=== PATIENT | female | born 1950 | race Caucasian/White ===

== ENCOUNTER 2020-03-07 09:00 | Outpatient (RCR) | payer MEDICARE, OTHER, SELFPAY | END 2020-03-13 10:40 | disposition home or self-care (01) | LOC: HO.PTCHIC 09:00 | PROVIDERS: PCP Family Medicine; Visit Provider Physician Assistant | DX: M16.12 Unilateral primary osteoarthritis, left hip (principal) | CPT/HCPCS: 97110; 97140; 97161 ==

== ENCOUNTER 2020-04-10 09:45 | Emergency (ER) | payer MEDICARE, OTHER, SELFPAY ==
[2020-04-10 09:52] VITALS: BP 127/72; PULSE 77; PULSE 78; RESP 18; TEMP 37.3; O2SAT 98; BMI 39.5
--- NOTE | 2020-04-10 09:53 | ED_ITS ---
HPI - Allergic Reaction General Chief complaint: Allergic Reaction Stated complaint: allergic rx to meds,facial swelling,epi pen 0830 Time Seen by Provider: 04/10/20 09:52 Source: patient and EMS Mode of arrival: EMS Limitations: no limitations History of Present Illness complaint: allergic reaction and facial swelling Onset (ago): hour(s) (6am today) Exposure: medication (OTC cold medications) Known history of allergy to: NSAIDs Symptoms: facial swelling Severity: similar to previous episodes (has angioedema, moderate severity) Treatment prior to arrival: epinephrine (one dose) and other (took 2 atarax) Previous Allergic Reaction History: prior ED visit(s) and angioedema Related Data Previous Rx's Medication Instructions Recorded prednisone 40 mg PO DAILY 5 Days #10 tab 04/10/20 Allergies Allergy/AdvReac Type Severity Reaction Status Date / Time codeine [CODEINE] Allergy Unknown NAUSEA & Unverified 01/18/20 16:05 VOMITING azithromycin Allergy Angioedema Verified 04/10/20 10:04 cephalexin [From Keflex] Allergy Rash Verified 04/10/20 10:04 ibuprofen Allergy Angioedema Verified 04/10/20 10:04 latex Allergy Rash Verified 04/10/20 10:04 lisinopril Allergy Angioedema Verified 04/10/20 10:04 nadolol [From Corgard] Allergy Itching Verified 04/10/20 10:04 clindamycin AdvReac Rash Verified 04/10/20 10:04 diltiazem [From Cardizem] AdvReac Headache Verified 04/10/20 10:04 Review of Systems Review of Systems: Constitutional : No Fever, No Chills ENT/Mouth : positive oral swelling, No Hoarseness, No Swallowing Difficulty Eyes: No Eye Pain, No Swelling, No Redness Cardiovascular : No Chest Pain, No SOB Respiratory : No Cough, No Sputum, No Wheezing, No Smoke Exposure, No Dyspnea Gastrointestinal : No Nausea, No Vomiting, No Diarrhea, No abdominal Pain Genitourinary : No Dysuria, No Urinary Frequency, No Hematuria Musculoskeletal : No joint pain, No Myalgias, No Joint Swelling Skin : No Skin Lesions, positive rash (old from prior reaction) Neuro : No Weakness, No Numbness, No Headache Psych : No Anxiety/Panic, No Depression Heme/Lymph: No Bruising, No Lymphadenopathy Endocrine : No Polyuria, No Polydipsia All other systems reviewed and are negative FOR[facility] Past Medical History Attestation statement: The following information was validated with the patient. Social History Social History (Updated 04/10/20 @ 09:55 by Barbara Yoder DO) Smoking Status: Never smoker Advance Directives: No Advance Directives Information Provided: No Physical Exam Vital Signs: Vital Signs: Last Vital Signs Temp 99.2 F 04/10/20 09:52 Pulse 78 04/10/20 09:52 Resp 18 04/10/20 09:52 BP 127/72 04/10/20 09:52 Pulse Ox 98 04/10/20 09:52 Body Mass Index 39.5 Appearance: Alert. Oriented X3. No acute distress. Eyes: Pupils equal, round and reactive to light. ENT: mild R sided lower jaw swelling, mild R tongue swelling Neck: Normal inspection. Neck supple. CVS: Normal heart rate and rhythm. Pulses normal. Respiratory: No respiratory distress. Breath sounds normal. Abdomen: Soft and nontender. Skin: Skin warm and dry. Normal skin color. Normal skin turgor. old pink faint rash on L forearm Extremities: No lower extremity edema. No calf ttp Neuro: Oriented X 3. No motor deficit. No sensory deficit. Course Course Course Narrative: patient improved, stable for DC MDM - Allergic Reaction MDM Narrative Medical decision making narrative: 69 yo female with recurrent angioedema mostly pointed at NSAIDs, she does respond to epi - overall she is improving from treatments at home, no airway issues, will give pepcid and prednisone and observe, has had URI will obtain COVID swab as well, dispo per results and improvement Lab Data Labs: Lab Results 04/10/20 Range/Units 10:09 COVID-19 ([facility]) Negative (Negative) COVID-19 Clin Com See Note Discharge Plan Discharge Clinical Impression: Angioedema Qualifiers: Encounter type: initial encounter Qualified Code(s): T78.3XXA - Angioneurotic edema, initial encounter Patient Disposition: Home, Self-Care Instructions: Angioedema (ED) Additional Instructions: return to ED for any worsening symptoms or concerns Prescriptions: New prednisone 20 mg tablet 40 mg PO DAILY 5 Days Qty: 10 RF: 0 Referrals: Jessy Johnson DO [Primary Care Provider] - 2 days (as needed)
[2020-04-10] MEDS: predniSONE 20 MG TABLET 60 MG PO (10:11)
[2020-04-10] MEDS: Famotidine 20 MG TABLET PO (10:11)
[2020-04-10 10:34] LABS: COVID-19 Test Negative (Negative); IDNOW Serial# 9DD0AD1C
== END 2020-04-10 11:04 | disposition home or self-care (01) ==
PROVIDERS: Emergency Provider Emergency Medicine; PCP Family Medicine
DX: T78.3XXA Angioneurotic edema, initial encounter (principal); T39.315A Adverse effect of propionic acid derivatives, initial encounter; Y92.019 Unspecified place in single-family (private) house as the place of occurrence of the external cause; Z20.828 Contact with and (suspected) exposure to other viral communicable diseases
CPT/HCPCS: 87635; 99283

== ENCOUNTER 2020-04-23 08:00 | Outpatient (RCR) | payer MEDICARE, OTHER, SELFPAY | END 2020-05-01 10:41 | disposition home or self-care (01) | LOC: HO.PTCHIC 08:00 | PROVIDERS: PCP Family Medicine; Visit Provider Orthopaedic Surgery | DX: M19.90 Unspecified osteoarthritis, unspecified site (principal); R52 Pain, unspecified | CPT/HCPCS: 97110; 97140; 97161 ==

== ENCOUNTER 2021-01-28 14:25 | Outpatient (REF) | payer MEDICARE, OTHER, SELFPAY ==
[2021-01-28 14:37] LABS: IDNOW Serial# 08D9AD1C; Strep A Nucleic Acid Negative (Negative)
== END 2021-01-28 14:26 | disposition home or self-care (01) ==
LOC: HO.LNP 14:25
PROVIDERS: Visit Provider Physician Assistant Medical
DX: J02.9 Acute pharyngitis, unspecified (principal)
CPT/HCPCS: 87651

== ENCOUNTER → 2021-06-13 11:09 | Outpatient (BNVA) | payer MEDICARE, OTHER, SELFPAY | PROVIDERS: PCP Family Medicine; Visit Provider Internal Medicine Cardiovascular Disease | DX: R00.2 Palpitations (principal); I10 Essential (primary) hypertension | CPT/HCPCS: 93005; 99202 ==

== ENCOUNTER → 2021-06-24 07:28 | Outpatient (REF) | payer MEDICARE, OTHER, SELFPAY ==
--- NOTE | 2021-06-24 07:32 | HM_ITS ---
conclusion: 1. Patient was monitor for total [id number] and 4 hours 2. Baseline was normal sinus rhythm with average heart of 78 beats per minute 3. Total of 277,698 PACs accounting for 20.37% of total beats account for very frequent PACs 4. Frequent bursts of supraventricular ectopy, longest 27 beats, most consistent with PAT or less likely SVT. 5. Patient reported no events 6. No significant bradycardia or pauses noted MTDD
== END ==
LOC: HO.CARD 07:28
PROVIDERS: Visit Provider Internal Medicine Cardiovascular Disease
DX: R00.2 Palpitations (principal)
CPT/HCPCS: 93246

== ENCOUNTER → 2021-06-30 08:31 | Outpatient (REF) | payer MEDICARE, OTHER, SELFPAY | LOC: HO.SL 08:31 | PROVIDERS: PCP Family Medicine; Visit Provider Internal Medicine Cardiovascular Disease | DX: G47.10 Hypersomnia, unspecified (principal); I49.1 Atrial premature depolarization; I10 Essential (primary) hypertension | CPT/HCPCS: 95806 ==

== ENCOUNTER → 2021-07-25 10:10 | Outpatient (BNVA) | payer MEDICARE, OTHER, SELFPAY | PROVIDERS: PCP Family Medicine; Visit Provider Internal Medicine Cardiovascular Disease | DX: I47.1 Supraventricular tachycardia (principal) | CPT/HCPCS: 99212 ==

== ENCOUNTER 2021-10-01 08:21 | Outpatient (REF) | payer MEDICARE, OTHER, SELFPAY ==
[2021-10-01 12:04] LABS: B Type Natriuretic Peptide 56 pg/mL (<100)
[2021-10-01 12:08] LABS: Anion Gap 14 (12-20); Blood Urea Nitrogen 13 mg/dL (9-16); Calcium 9.3 mg/dL (8.4-10.2); Carbon Dioxide 24 mmol/L (22-29); Chloride 107 mmol/L (96-108); Estimated Glomerular Filt Rate > 60; Glucose Random 109 mg/dL (60-115); Potassium 3.6 mmol/L (3.3-5.1); Sodium 141 mmol/L (135-145)
== END 2021-10-01 08:22 | disposition home or self-care (01) ==
LOC: HO.HMGCLDS 08:21
PROVIDERS: Visit Provider Internal Medicine Cardiovascular Disease
DX: I47.1 Supraventricular tachycardia (principal); R00.2 Palpitations; I49.1 Atrial premature depolarization
CPT/HCPCS: 36415; 80048; 83880

== ENCOUNTER → 2021-10-30 08:53 | Outpatient (BNVA) | payer MEDICARE, OTHER, SELFPAY | PROVIDERS: PCP Family Medicine; Visit Provider Internal Medicine Cardiovascular Disease | DX: I47.1 Supraventricular tachycardia (principal); R06.02 Shortness of breath; Z79.899 Other long term (current) drug therapy | CPT/HCPCS: 93005; 99212 ==

== ENCOUNTER → 2021-11-28 07:49 | Outpatient (REF) | payer MEDICARE, OTHER, SELFPAY ==
--- NOTE | ~2021-11-28 | NM_ITS ---
EXERCISE MYOCARDIAL PERFUSION STUDY INDICATION: Abnormal EKG, assess for coronary disease and ischemia TECHNIQUE: The patient was brought in for an exercise perfusion study on 11/28/2021. Patient performed exercise as per Kayden protocol and was injected 35 mCi of sestamibi once target heart rate was achieved. Images were obtained using the SPECT gamma camera interlaced with the gating device. Images were obtained in supine position. Resting perfusion study was performed on 12/02/2021. Patient was administered 35 mCi of sestamibi intravenously at rest. Images were then obtained in supine position. Total DLP 144mGy-cm. Images were processed with the software and compared side to side in short axis, horizontal long axis and vertical long axis views. FINDINGS: Raw images were reviewed. The stress perfusion study showed no significant perfusion abnormality. Both uncorrected as well as CT attenuation corrected images were reviewed. The gated study shows normal LV systolic function with calculated LVEF of 62%. LV cavity is normal in size. The gated study shows normal wall thickening and contraction of segments. Resting study shows no significant perfusion abnormality. Gating at rest reveals normal wall motion with ejection fraction at 71%. The findings are consistent with no definite reversible or fixed perfusion abnormality. NM/NM cardiolite stress test IMPRESSION: 1. Myocardial perfusion imaging study shows likely normal myocardial perfusion. No definitive evidence of any ischemia or infarction. 2. Gated LVEF is 62% during stress and 71% during rest. 3. Transient ischemic dilatation not present. EKG component of the test reported separately.
--- NOTE | 2021-11-28 07:56 | CA_ITS ---
Acquisition Time: 2021-11-28 08:06:51 Total Exercise Time: 00:05:01 Test Indications: ABN EKG Medications: SEE CHART Protocol: ZHANE Max HR: 153 BPM 100% of Pred: 152 BPM Max BP: 166/092 mmHG Max Work Load: 6.4 METS Exercise stress test with exercise 5 min 1 sec of Zhane protocol, with moderate shortness of breath, no chest discomfort, with very frequent PACs and short atrial runs, with normotensive response to exercise, with borderline ST abnormalities noted, no clear ischemic changes. In recovery the PVCs lessened and her breathing quickly improved. Nuclear images pending. Test reviewed with Dr Barroso Note- atrial fibrillation during exercise not entirely excluded. Referred By: Ed Mcclelland Overread By: ADELINA MURRIETA
== END ==
LOC: HO.CARD 07:49
PROVIDERS: Visit Provider Internal Medicine Cardiovascular Disease
DX: R07.9 Chest pain, unspecified (principal); R06.02 Shortness of breath; I10 Essential (primary) hypertension
CPT/HCPCS: 78452; 93017; A9500

== ENCOUNTER 2022-01-16 08:00 | Outpatient (REF) | payer MEDICARE, OTHER, SELFPAY ==
--- NOTE | ~2022-01-16 | MM_ITS ---
EXAMINATION: BONE DENSITOMETRY CLINICAL INDICATION: Screening. COMPARISON: None (current study represents initial baseline exam). TECHNIQUE: Using a [employer] DXA System (software version: 13.1) manufactured by [employer], dual-energy x-ray absorptiometry was performed of the lumbar spine and right hip. The images are of good technical quality. Summary results are attached. FINDINGS: AP SPINE L1-L4: BMD 1.034 g/cm2, Z-score -0.7, T-score -1.2, osteopenia. RIGHT FEMUR, NECK: BMD 0.888 g/cm2, Z-score -0.2, T-score -1.1, osteopenia. RIGHT FEMUR, TOTAL: BMD 0.985 g/cm2, Z-score 0.4, T-score -0.2, normal. IDENTIFIED RISK FACTORS: Menopause, Thiazide. HISTORY OF FRACTURE: None listed. MEDICATIONS: None listed. MM/XR DEXA axial skeleton IMPRESSION: 1. DIAGNOSIS: Osteopenia based on the lowest T-score value of -1.2 in the lumbar spine applying World Health Organization criteria. 2. 10-YEAR FRACTURE RISK PREDICTION, FRAX: Major osteoporotic fracture (clinical spine, forearm, hip or shoulder) 7.8%. Hip fracture 0.7%. 3. Treatment Recommendations: NOF guidelines recommend consideration for treatment in postmenopausal women and men age 50 and older presenting with the following: -A hip or vertebral (clinical or morphometric) fracture. -T-score less than or equal to -2.5 at the femoral neck or spine after appropriate evaluation to exclude secondary causes. -Low bone mass at the hip or spine and a 10-year fracture probability by FRAX of greater than or equal to 3% for hip fracture or greater than or equal to 20% for major osteoporotic fracture based on the [place] adapted WHO algorithm. 4. Other Recommendations: All treatment decisions require clinical judgment and consideration of individual patient factors, including patient preferences, comorbidities, previous drug use, risk factors not captured in the FRAX model (e.g. frailty, falls, vitamin D deficiency, increased bone turnover, interval significant decline in bone density) and possible under or overestimation of fracture risk by FRAX. Additional medical evaluation for secondary cause of low bone mineral density may be appropriate. FUTURE SCAN RECOMMENDATION: People with diagnosed cases of osteoporosis or at high risk for fracture should have regular bone mineral density tests. For patients eligible for Medicare, routine testing is allowed once every 2 years. The testing frequency can be increased to one year for patients who have rapidly progressing disease, those who are receiving or discontinuing medical therapy to restore bone mass, or have additional risk factors.
== END 2022-01-16 08:01 | disposition home or self-care (01) ==
LOC: HO.MAMMO 08:00
PROVIDERS: Visit Provider Family Medicine
DX: Z13.820 Encounter for screening for osteoporosis (principal); Z78.0 Asymptomatic menopausal state
CPT/HCPCS: 77080

== ENCOUNTER → 2022-06-04 09:06 | Outpatient (BNVA) | payer MEDICARE, OTHER, SELFPAY | PROVIDERS: PCP Family Medicine; Referring Provider Family Medicine; Visit Provider Internal Medicine Cardiovascular Disease | DX: I47.1 Supraventricular tachycardia (principal); I10 Essential (primary) hypertension | CPT/HCPCS: 93005; 99212 ==

== ENCOUNTER → 2022-06-10 10:39 | Outpatient (REF) | payer MEDICARE, OTHER, SELFPAY ==
--- NOTE | 2022-06-10 10:43 | HM_ITS ---
conclusion: 1. Patient was monitored for total period of 1 day and 22 hours 2. Baseline was normal sinus rhythm with average heart of 71 beats per minute 3. Total of 32,953 PACs accounting for 18.4% total beats account for very frequent PACs 4. Very frequent short runs of SVT ease, longest lasting 19 beats and the fastest at 152 beats per minute 5. No patient reported events MTDD
== END ==
LOC: HO.CARD 10:39
PROVIDERS: Visit Provider Internal Medicine Cardiovascular Disease
DX: I47.1 Supraventricular tachycardia (principal)
CPT/HCPCS: 93242

== ENCOUNTER → 2022-07-24 09:48 | Outpatient (REF) | payer MEDICARE, OTHER, SELFPAY ==
--- NOTE | 2022-07-24 09:54 | CA_ITS ---
Transthoracic Echocardiogram Patient (Last, First, Middle): Susan Mesa, Gender: Female Date of : 1950 Age: 71 Procedure Date: 07/24/2022 Procedure Type: Transthoracic Echocardiogram Location: OP Height: 160.02 cm Weight: 99.79 kg BSA: 2.01 m2 Heart Rate: bpm BP: 126 / 70 mmHg Asset Protection Specialist: TO Referring MD: Ed Mcclelland MD Benchroom Shop Optician: Ed Mcclelland MD Symptoms: R00.2 - Palpitations Study Quality: Fair/Contrast ECG Rhythm: Sinus Conclusions: - 1. Normal LV systolic function with pseudonormal filling pattern 2. Mild mitral regurgitation 3. Normal RV systolic pressure 4. No gross pericardial effusion Findings Procedure Information Contrast agent, definity, is being given per protocol without apparent complications. Left Ventricle Normal left ventricular size, thickness, and systolic function. The visually estimated ejection fraction is between 65-70%. Spectral Doppler is indicative of a pseudonormal filling pattern. Right Ventricle Normal right ventricular cavity size and systolic function. Atria The left atrium is normal in size. There is no evidence of interatrial shunt. The right atrium is normal in size. Aortic Valve Normal aortic valve structure and function. There is no aortic valve stenosis. There is no aortic valve regurgitation. Mitral Valve There is mild anterior and posterior mitral leaflet thickening. There is mild mitral annular calcification. There is mild mitral valve regurgitation. There is no mitral valve stenosis. Pulmonic Valve The pulmonic valve was not well visualized. Tricuspid Valve Normal tricuspid valve structure. There is mild tricuspid valve regurgitation. Normal right atrial pressure. There is no evidence of pulmonary hypertension. Great Vessels All visible segments of the aorta are normal in size. The pulmonary artery was not well visualized. Venous The inferior vena cava is normal in size and collapses greater than 50% with inspiration. Pericardium/Pleural There is no evidence of pericardial effusion. Prior Study Comparison No prior study available for comparison. Measurements 2D Linear Measurements IVSd: 0.85 0.6-0.9/0.6-1.0 cm LVIDd: 5.04 3.9-5.3/4.2-5.9 cm LVIDd Index: 2.51 2.4-3.2/2.2-3.1 cm/m2 LVIDs: 2.91 2.0-3.6 cm LVPWd: 0.88 0.7-1.1 cm LA Diam: 4.00 2.7-3.8/3.0-4.0 cm LAIDs Index: 1.99 1.5-2.3 cm/m2 LV Mass: 188.70 67-162/88-224 g LV Mass Index: 93.88 43-95/49-115 g/m2 LVOT Diam: 1.90 3.0+(-)1.3 cm 2D Systolic Function EF 4C: 68.70 >55% Mitral Valve MV Pk E: 0.86 MV PK A: 0.70 MV Decel Time: 241.00 E/A: 1.20 E'Lateral: 9.25 E/E' Lat: 9.30 PHT: 71.00 MVA PHT: 3.10 Decel [place]: 3.57 Aortic Valve AoV Pk Ward: 1.49 AoV Pk Grad: 9.00 LVOT LVOT Pk Ward: 1.18 LVOT Mn Ward: 0.77 LVOT VTI: 0.28 LVOT Pk Grad: 6.00 LVOT Mn Grad: 3.00 LVOT Diam: 1.90 LVOT Area: 2.84 Diastolic Function MV Pk E: 0.86 MV Pk A: 0.70 E/A: 1.20 E' Laterial: 9.25 E/E' Lat: 9.30 Right Ventricle TAPSE (mm): 26.10 TVS' Ward: 12.00 Tricuspid Valve TR Pk Ward: 2.64 TR Pk Grad: 28.00 RA Press: 3.00 RVSP: 31.00 Great Vessels Aorta Sinus of Valsalva: 2.88 2.0-3.[address] [place]: 2.32 1.7-3.4 cm Ao Asc: 3.20 2.1-3.4 cm Updated in Other Vendor System with Status of Final Ed Mcclelland MD electronically signed on 07/25/2022 1:04:25 PM with status of Final
--- NOTE | 2022-07-24 09:54 | HM_ITS ---
Conclusion: 1. Patient was monitored for total period of 3 days 2. Baseline was normal sinus rhythm with average heart of 75 beats per minute 3. No significant pauses or bradycardia noted 4. Total of 23,031 PACs accounting for total of 11% of total beats accounting for frequent PACs 5. Frequent burst of SVT, longest 32 beats and fastest at 207 beats per minute 6. No patient reported symptoms MTDD
== END ==
LOC: HO.CARD 09:48
PROVIDERS: PCP Family Medicine; Visit Provider Internal Medicine Cardiovascular Disease
DX: I47.1 Supraventricular tachycardia (principal); I49.1 Atrial premature depolarization
CPT/HCPCS: 93242; 93306; Q9957

== ENCOUNTER 2023-01-26 08:49 | Outpatient (REF) | payer MEDICARE, OTHER, SELFPAY | END 2023-01-26 08:50 | disposition home or self-care (01) | LOC: HO.MAMMO 08:49 | PROVIDERS: PCP Family Medicine; Visit Provider Family Medicine | DX: Z12.31 Encounter for screening mammogram for malignant neoplasm of breast (principal) | CPT/HCPCS: 77063; 77067 ==

== ENCOUNTER → 2023-01-26 09:00 | Outpatient (BNV) | payer MEDICARE, OTHER, SELFPAY | PROVIDERS: PCP Family Medicine; Visit Provider Radiology Diagnostic Radiology | DX: Z12.31 Encounter for screening mammogram for malignant neoplasm of breast (principal) | CPT/HCPCS: 77063; 77067 ==

== ENCOUNTER 2023-02-22 08:02 | Outpatient (AMB) | payer MEDICARE, OTHER, SELFPAY ==
[2023-02-22 08:03] VITALS: BP 132/74; PULSE 80; TEMP 37.3; O2SAT 96
--- NOTE | 2023-02-22 08:03 | AM.OFFWIN_ITS ---
Intake Vital Signs 02/22/23 08:03 Height 5 ft 1 in BMI Reason not done Patient refused/unable BP 132/74 Blood Pressure Location Lt brachial Position Sitting Pulse 80 Pulse Source Pulse Oximeter Temp 99.2 F Temp Source Temporal Artery Scan Pulse Oximetry (%) 96 Intake Visit Reasons: EP ?Sinus Intake Note: pt is here for c/o sinus infection Patient Tobacco Use Status: Former Tobacco user Quit Date: quit 15-20 yrs ago Allergies codeine [CODEINE] Allergy (Unknown, Verified 02/22/23 08:37) NAUSEA & VOMITING azithromycin Allergy (Verified 02/22/23 08:37) Angioedema cephalexin [From Keflex] Allergy (Verified 02/22/23 08:37) Rash ibuprofen Allergy (Verified 02/22/23 08:37) Angioedema latex Allergy (Verified 02/22/23 08:37) Rash lisinopril Allergy (Verified 02/22/23 08:37) Angioedema nadolol [From Corgard] Allergy (Verified 02/22/23 08:37) Itching NSAIDS (Non-Steroidal Anti-Inflamma Allergy (Verified 02/22/23 08:37) Angioedema clindamycin Adverse Reaction (Verified 02/22/23 08:37) Rash diltiazem [From Cardizem] Adverse Reaction (Verified 02/22/23 08:37) Headache Aspirin Allergy (Uncoded 02/22/23 08:37) Rash Do you need a note to return to daycare/school/sports/work: Yes HPI EP ?Sinus HPI Details Patient presents for a sick visit. Reporting symptoms of sinus congestion, sore throat and difficulty swallowing. Low-grade fever. No family member is sick. No recent travel. Patient reports symptoms of malaise and fatigue. [facility] Medical History HTN (hypertension) PAC (premature atrial contraction) Surgical History History of lateral meniscus repair of right knee Status post total hip replacement, left Family History Father Aortic aneurysm Heart disease Mother Stroke AAA (abdominal aortic aneurysm) Brother Heart disease Social History Patient Tobacco Use Status: Former Tobacco user Quit Date: quit 15-20 yrs ago Physical Exam Vital Signs: Last Vital Signs Temp 99.2 F 02/22/23 08:03 Pulse 80 02/22/23 08:03 BP 132/74 02/22/23 08:03 Pulse Ox 96 02/22/23 08:03 Const General: cooperative and healthy appearing Nutritional Appearance: well nourished Orientation/consciousness: patient oriented x3 Limitations: no limitations HEENT Head: Yes normal to inspection Eyes General: appearance normal, both eyes and all related structures Neck Neck: Yes normal visual inspection Chest Chest palpation & inspection: normal palpation of entire chest wall Resp Effort & Inspection: normal respiratory effort Neuro General: patient oriented x3 Assessment & Plan Assessment & Plan (1) URI (upper respiratory infection): Code(s): J06.9 - Acute upper respiratory infection, unspecified Plan Antibiotics ordered. Increase fluid intake. Tylenol for aches and pains. If symptoms worsen, follow-up here for a recheck. Orders: Orders SARS-CoV2/FLU/RSV Today R43.9 - Unspecified disturbances of smell and taste Coding Level of Care Code Est Pt Level 3 (22259) Diagnoses URI (upper respiratory infection) J06.9
== END 2023-02-22 09:16 | disposition home or self-care (01) ==
PROVIDERS: PCP Family Medicine; Visit Provider Internal Medicine
DX: J06.9 Acute upper respiratory infection, unspecified (principal)
CPT/HCPCS: 99213

== ENCOUNTER 2023-02-22 08:37 | Outpatient (REF) | payer MEDICARE, OTHER, SELFPAY ==
[2023-02-22 12:19] LABS: Influenza A PCR NEGATIVE (Negative); Influenza B PCR NEGATIVE (Negative); Resp Syncy Virus RNA Qual PCR NEGATIVE (Negative); SARS COV2 PCR INHOUSE NEGATIVE (Negative)
== END 2023-02-22 08:38 | disposition home or self-care (01) ==
LOC: HO.LAB 08:37
PROVIDERS: Visit Provider Internal Medicine
DX: R43.9 Unspecified disturbances of smell and taste (principal); Z11.52 Encounter for screening for COVID-19
CPT/HCPCS: 0241U

== ENCOUNTER 2023-02-28 06:18 | Emergency (ER) | payer MEDICARE, OTHER, SELFPAY ==
--- NOTE | 2023-02-28 | ECG_ITS ---
Test Reason : CHEST PRESSURE Blood Pressure : / mmHG Vent. Rate : 077 BPM Atrial Rate : 111 BPM P-R Int : 000 ms QRS Dur : 074 ms QT Int : 398 ms P-R-T Axes : 000 -14 000 degrees QTc Int : 450 ms Normal sinus rhythm unusual p-wave axis Nonspecific ST and T wave abnormality Abnormal ECG When compared with ECG of 12-MAY-2001 07:32, No significant changes seen Referred By: Generic ED Physician Electronically Signed By:TOM GAFFNEY MD
--- NOTE | ~2023-02-28 | XR_ITS ---
EXAMINATION: XR CHEST CLINICAL INFORMATION: Cough and chest pain. Shortness of breath. COMPARISON: Chest radiograph dated 07/06/2010. TECHNIQUE: 2 views of the chest were obtained. FINDINGS: The lungs are clear. The cardiomediastinal silhouette is normal in size. There is no pleural effusion or pneumothorax. No acute osseous abnormality. XR/XR chest 2V IMPRESSION: No acute cardiopulmonary findings.
[2023-02-28 06:19] VITALS: BP 126/71; PULSE 81; RESP 15; TEMP 36.2; O2SAT 97; BMI 40.7
--- NOTE | 2023-02-28 06:42 | ED.URI ---
HPI - URI/Sore Throat General Chief Complaint: Upper Respiratory Symptoms Stated Complaint: SoB, trouble breathing Time Seen by Provider: 02/28/23 06:30 Source: patient, family and RN notes reviewed Mode of arrival: ambulatory Limitations: no limitations History of Present Illness HPI Narrative: This is a 72-year-old female, with a past medical history of hypertension, paroxysmal atrial tachycardia, PACs, presenting to the emergency department with complaints of ongoing productive cough x8 days. Patient states that Wednesday last week she developed a productive cough with green-colored sputum. She states that her symptoms are progressively worsening and was seen at urgent care on Wednesday or she was prescribed Bactrim and prednisone. She felt as though her symptoms are improving while on the prednisone however this course was completed. She states that her symptoms have progressively gotten worse. She states that she is now starting to have shortness of breath, and reports chest pressure which started last night. She has had an episode of chest pressure last night as well as this morning. States the symptoms worsen with cough. She states that her shortness of breath worsens with ambulation and with lying down. She endorses some congestion, and a mild sore throat. Denies any fevers, chills, nausea, vomiting or diarrhea. Her grand children were sick last week however there symptoms have improved. Patient has no history of asthma or COPD. No other complaints or concerns at this time. MD elicited complaint: cough and nasal congestion Onset (ago): day(s) Consistency: constant Able to tolerate fluids by mouth: Yes Exacerbating factors: nothing Relieving factors: nothing Context: sick contacts Associated symptoms: denies other symptoms Treatments prior to arrival: none Related Data Home Medications Medication Instructions Recorded Confirmed epinephrine 0.3 mg/0.3 mL IM 05/21/21 06/04/22 injection, auto-injector hydrochlorothiazide 25 mg tablet 25 mg PO DAILY 05/21/21 06/04/22 hydroxyzine HCl 25 mg tablet 25 mg PO DAILY 05/21/21 06/04/22 benzonatate 100 mg capsule 100 mg PO TID PRN cough 06/04/22 06/04/22 Previous Rx's Medication Instructions Recorded albuterol sulfate 90 mcg/actuation 2 inh inhalation QID PRN shortness 09/10/21 aerosol inhaler of breath or wheezing #6.7 grams verapamil 240 mg 24 hr 240 mg PO DAILY #90 caps 11/30/22 capsule,extended release prednisone 20 mg tablet 60 mg (3 x 20 mg) PO DAILY #9 tabs 02/22/23 sulfamethoxazole 800 1 tab PO BID 7 days #14 tabs 02/22/23 mg-trimethoprim 160 mg tablet (Bactrim DS) benzonatate 100 mg capsule 100 mg PO TID PRN cough #14 caps 02/28/23 prednisone 20 mg tablet 40 mg (2 x 20 mg) PO DAILY 3 days 02/28/23 #6 tabs Allergies Allergy/AdvReac Type Severity Reaction Status Date / Time codeine [CODEINE] Allergy Unknown NAUSEA & Verified 02/22/23 08:37 VOMITING azithromycin Allergy Angioedema Verified 02/22/23 08:37 cephalexin [From Keflex] Allergy Rash Verified 02/22/23 08:37 ibuprofen Allergy Angioedema Verified 02/22/23 08:37 latex Allergy Rash Verified 02/22/23 08:37 lisinopril Allergy Angioedema Verified 02/22/23 08:37 nadolol [From Corgard] Allergy Itching Verified 02/22/23 08:37 NSAIDS (Non-Steroidal Allergy Angioedema Verified 02/22/23 08:37 Anti-Inflamma clindamycin AdvReac Rash Verified 02/22/23 08:37 diltiazem [From Cardizem] AdvReac Headache Verified 02/22/23 08:37 Aspirin Allergy Rash Uncoded 02/22/23 08:37 Review of Systems Review of Systems: Yes all other systems are reviewed and are negative Constitutional: Constitutional: Reports as per [facility] Past Medical History Medical History HTN (hypertension) PAC (premature atrial contraction) Surgical History History of lateral meniscus repair of right knee Status post total hip replacement, left Family History Family History Father Aortic aneurysm Heart disease Mother Stroke AAA (abdominal aortic aneurysm) Brother Heart disease Social History Social History Patient Tobacco Use Status: Former Tobacco user Quit Date: quit 15-20 yrs ago Smoked in Last 30 Days: No Use of substances other than those prescribed or required for medical reasons: No Advance Directives: No Advance Directives Information Provided: Yes Physical Exam Vital Signs: Vital Signs: Last Vital Signs Temp 98.0 F 02/28/23 07:21 Pulse 72 02/28/23 07:21 Resp 21 H 02/28/23 07:21 BP 142/74 H 02/28/23 07:21 Pulse Ox 95 02/28/23 07:21 O2 Del Method Room Air 02/28/23 07:21 BMI result Body Mass Index 40.7 Const: General: cooperative, comfortable and no acute distress Orientation/consciousness: patient oriented x3 Limitations: no limitations HEENT: Head: Yes normal to inspection, Yes normocephalic and Yes atraumatic Ears: hearing grossly normal bilaterally General nose exam: Normal external nose present Face and sinus: Yes normal facial exam Mouth: Normal oral and palatal mucosa present, oropharynx normal and moist mucous membranes Throat: Yes posterior oropharynx normal Eyes: General: appearance normal, both eyes and all related structures Eyelids: Yes eyelids normal Conjunctivae: conjunctivae normal Sclerae: sclerae normal Pupils: Equal, round and reactive pupils present EOM: EOMs intact bilaterally Neck: Neck: Yes normal visual inspection, Yes full ROM and Yes no lymphadenopathy Lymphatic: no lymphadenopathy noted Chest: Chest palpation & inspection: normal inspection of the chest Resp: Other: Lungs with diminished air flow, otherwise no wheezes, rales, or rhonchi. Effort & Inspection: normal respiratory effort and able to speak in complete sentences Cardio: Rate: regular rate Rhythm: regular rhythm Heart sounds: S1 normal heart sound present and S2 normal heart sound present GI: Inspection: Yes normal to inspection Skin: General skin exam: no rashes or lesions noted Trauma: no lacerations or abrasions Wounds: no wounds Neuro: General: patient oriented x3 and moves all extremities Cranial nerves: Yes Equal, round and reactive pupils present Extrem: General: Yes normal to inspection and Yes no pedal edema Right upper extremity: normal to inspection Left upper extremity: normal to inspection Right lower extremity: normal to inspection Left lower extremity: normal to inspection Course Reevaluation(s) Reevaluation #1: Patient's vital signs remain within normal limits. Patient well-appearing, under no acute respiratory distress. Patient tested negative for flu, RSV, and COVID. Labs with leukocytosis at 18.9, however patient just finished course of prednisone, may be reactive. Chest x-ray does not show pneumonia. EKG normal sinus rhythm with no ST elevation or depression. Troponin negative. BMP within normal limits. Vital signs are stable. Symptoms consistent with acute bronchitis. Will treat patient's symptoms with tessalon and prednisone. Advised to follow-up with primary care physician on Wednesday. Patient understands and agrees with plan. Given return precautions. Urine sample revealing small leuk esterases, and wbc's. Patient has no urinary complaints. She says that she has a history of lichen sclerosis. Will await urine culture if patient needs treatment. Stable for discharge. Time: 09:37 Medical Decision Making Medical Decision Making [facility] Narrative: This is a 72-year-old female, with a past medical history of hypertension, paroxysmal atrial tachycardia, PACs, presenting to the emergency department with complaints of ongoing productive cough x8 days. On arrival, vital signs within normal limits. Patient is nontoxic appearing and speaking in full sentences, lungs with diminished air flow, otherwise no wheezes, rales or rhonchi. Patient endorses chest pressure which started last night. Differential diagnoses include pneumonia, URI, viral syndrome, CHF, ACS-unlikely. Plan: EKG, chest x-ray, labs, UA Differential Diagnosis Differential Diagnoses: The differential diagnosis associated with the presentation includes See above Admission/Observation Consideration of admission/observation: Escalation of care including admission/observation considered Patient would have been admitted to the hospital had her work up had any findings where hospital admission was appropriate and her clinical presentation warranted hospital admission. Lab Data [facility] Lab Attestation statement: I reviewed the patient's lab results. See [facility] 02/28/23 06:56 02/28/23 06:56 Labs: Lab Results 02/28/23 02/28/23 Range/Units 06:56 07:25 WBC 18.9 H (4.8-10.8) X10*3/uL RBC 4.84 (4.20-5.50) X10*6/uL Hgb 14.3 (12.0-16.0) g/dl Hct 41.2 (37.0-47.0) % MCV 85.1 (80.0-98.0) fL MCH 29.5 (27.0-33.0) pg MCHC 34.7 (31.0-35.0) g/dl RDW 13.0 (11.0-16.0) % Plt Count 339 (160-400) X10*3/uL MPV 10.7 (9.4-12.3) fL Immature Gran % (Auto) 0.8 H (0.0-0.4) % Neut % (Auto) 79.7 H (45-73) % Lymph % (Auto) 12.0 L (20-40) % Howell % (Auto) 5.1 (2-11) % Eos % (Auto) 2.2 (0-4) % Baso % (Auto) 0.2 (0-2) % Lymph # (Auto) 2.3 (1.2-4.9) X10*3/uL Howell # (Auto) 1.0 (0.1-1.2) X10*3/uL Eos # (Auto) 0.4 (0.0-0.4) X10*3/uL Baso # (Auto) 0.0 (0.0-0.2) X10*3/uL Abs Immat Gran (auto) 0.15 H (0.00-0.03) X10*3/uL Absolute Neuts (auto) 15.1 H (2.0-8.3) x10*3/uL Absolute Nucleated RBC 0.000 (0.0-0.012) X10*3/uL Nucleated RBC % (auto) 0.0 (0.0-0.2) /100WBC Sodium 137 (135-145) mmol/L Potassium 3.6 (3.3-5.1) mmol/L Chloride 106 (96-108) mmol/L Carbon Dioxide 22 (22-29) mmol/L Anion Gap 13 (12-20) BUN 20 H (9-16) mg/dL Creatinine 0.98 (0.5-1.4) mg/dL Estim Creat Clear Calc 61.6 Estimated GFR 56 Random Glucose 103 (60-115) mg/dL Calcium 9.0 (8.4-10.2) mg/dL Magnesium 2.0 (1.6-2.6) mg/dL Total Bilirubin 0.7 (0.0-1.0) mg/dL Direct Bilirubin 0.2 (0.0-0.5) mg/dL AST 19 (5-31) U/L ALT 29 (0-31) U/L Alkaline Phosphatase 63 (39-117) U/L Troponin I High Sens < 2.7 (<3.5-17.0) ng/L B-Natriuretic Peptide 27 (<100) pg/mL Total Protein 6.7 (6.5-8.0) g/dL Albumin 3.9 (3.5-5.0) g/dL Urine Color Yellow Urine Appearance Clear Urine pH 5.5 (5.0-9.0) Ur Specific [place] 1.025 (1.005-1.025) Urine Protein Negative (Neg-Trace) mg/dL Urine Glucose (UA) Negative (Negative) mg/dL Urine Ketones Negative (Negative) mg/dL Urine Blood Negative (Negative) Urine Nitrite Negative (Negative) Ur Leukocyte Esterase Small (1+) H (Negative) Urine RBC 0-2 (0-2) /HPF Urine WBC 6-10 H (0-5) /HPF Ur Squamous Epith Cells 0-2 (0-2) /HPF Urine Bacteria None Seen (None Seen) Hyaline Casts 0-2 (0-2) /LPF Influenza Type A (PCR) NEGATIVE (Negative) Influenza Type B (PCR) NEGATIVE (Negative) RSV RNA Qual (PCR) NEGATIVE (Negative) SARS-CoV-2 RNA (RT-PCR) NEGATIVE (Negative) Independent Interpretation I performed an independent interpretation of an: EKG Interpretation: EKG normal sinus rhythm at a ventricular rate of 77 beats per minute QTC 450. No ST elevation under chin. Similar appearing EKG from previous. Radiology Impression Discussion of test interpretation with radiology: I have reviewed the radiologist's reading. Radiologist Impression: EXAMINATION: XR CHEST CLINICAL INFORMATION: Cough and chest pain. Shortness of breath. COMPARISON: Chest radiograph dated 07/06/2010. TECHNIQUE: 2 views of the chest were obtained. FINDINGS: The lungs are clear. The cardiomediastinal silhouette is normal in size. There is no pleural effusion or pneumothorax. No acute osseous abnormality. XR/XR chest 2V IMPRESSION: No acute cardiopulmonary findings. Dictated By: Edwin Paez MD Scores Heart Score History: -0- slightly suspicious ECG: -0- normal Age: -2- > or = 65 Risk factory: -1- 1 or 2 risk factors Troponin: -0- < or = normal limit Score: 3 Risk: 1.7% Discharge Plan Discharge Clinical Impression: Bronchitis Patient Disposition: Home, Self-Care Instructions: Acute Bronchitis (ED) Additional Instructions: You likely have bronchitis. This is inflammation of your airways causing you to cough. This is likely viral in nature, you do not need antibiotics at this time. You came to the emergency department today for a cough. Your EKG was reassuring. Your blood work was reassuring. Your urine shows slight abnormalities with white blood cells, this will be sent out for further testing, we will call you if any new medication changes need to be adjusted. Please take Tessalon Perles as directed. Take prednisone for the next 3 days. Call your primary care physician on Wednesday to ensure her symptoms are improving. If you develop any new or worsening symptoms including but not limited to worsening chest pressure, shortness of breath, please return for re-evaluation. Prescriptions: New benzonatate 100 mg capsule 100 mg PO TID PRN (Reason: cough) Qty: 14 0RF prednisone 20 mg tablet 40 mg PO DAILY 3 Days Qty: 6 0RF No Action verapamil 240 mg capsule,ext rel. pellets 24 hr 240 mg PO DAILY Qty: 90 3RF hydroxyzine HCl 25 mg tablet 25 mg PO DAILY hydrochlorothiazide 25 mg tablet 25 mg PO DAILY epinephrine 0.3 mg/0.3 mL auto-injector IM albuterol sulfate 90 mcg/actuation HFA aerosol inhaler 2 inh inhalation QID PRN (Reason: shortness of breath or wheezing) Qty: 6.7 0RF sulfamethoxazole-trimethoprim [Bactrim DS] 800-160 mg tablet 1 tab PO BID 7 Days Qty: 14 0RF prednisone 20 mg tablet 60 mg PO DAILY Qty: 9 0RF benzonatate 100 mg capsule 100 mg PO TID PRN (Reason: cough)
[2023-02-28 06:43] VITALS: PULSE 74; O2SAT 97
--- NOTE | 2023-02-28 06:48 | PC.NURSE ---
Pt presents to ED with complaints of feeling sick for a week. Pt reports runny nose, sore throat, productive cough. Pt also endorses chest pressure, denies pain or SOB. Pt is A&Ox4, GCS 15, with warm, dry skin. Pt is on the monitoring manager at this time. EDDIE Gonsalves at bedside. Pt is waiting labs and chest xray at this time.
[2023-02-28 07:01] LABS: MANUAL DIFF FLAG NO
[2023-02-28 07:05] LABS: Basophils Percent Auto 0.2 % (0-2); Eosinophils Absolute Auto 0.4 X10*3/uL (0.0-0.4); Eosinophils Percent Auto 2.2 % (0-4); Hematocrit 41.2 % (37.0-47.0); Hemoglobin 14.3 g/dl (12.0-16.0); Imm Gran Abs Auto 0.15 X10*3/uL (0.00-0.03); Imm Gran Pct Auto 0.8 % (0.0-0.4); Lymphocytes Absolute Auto 2.3 X10*3/uL (1.2-4.9); Mean Corpuscular HGB Conc 34.7 g/dl (31.0-35.0); Mean Corpuscular Hemoglobin 29.5 pg (27.0-33.0); Mean Corpuscular Volume 85.1 fL (80.0-98.0); Mean Platelet Volume 10.7 fL (9.4-12.3); Monocytes Percent Auto 5.1 % (2-11); Neutrophils Absolute Auto 15.1 x10*3/uL (2.0-8.3); Neutrophils Percent Auto 79.7 % (45-73); Platelet Count 339 X10*3/uL (160-400); Red Blood Count 4.84 X10*6/uL (4.20-5.50); White Blood Count 18.9 X10*3/uL (4.8-10.8)
--- NOTE | 2023-02-28 07:16 | PC.NURSE ---
PT IS A/O X 4 NO SOB/XIOMY NOTED SPEAKS IN FULL SENTENCES. LUNGS - DIMINISHED. PT STATES THAT UPPER RESP SX STARTED ON WEDNESDAY AND SHE WAS SEEN AT URGENT CARE GIVEN MEDS WITH NO IMPROVEMENT. HEART SOUNDS -REGULAR. ABD SOFT AND NON-TENDER, BS + X 4 QUADS. NO EDEMA NOTED. PT AMB (I) GAIT STEADY TO BR AND BTB. PT/ AWARE OF PLAN OF CARE.
[2023-02-28 07:21] VITALS: BP 142/74; PULSE 72; RESP 21; TEMP 36.7; O2SAT 95
--- NOTE | 2023-02-28 07:22 | PC.NURSE ---
PT DENIES ANY PAIN/DISC. C/O CHEST SORENESS DUE TO INCREASE COUGHING.
[2023-02-28 07:23] LABS: B Type Natriuretic Peptide 27 pg/mL (<100)
[2023-02-28 07:27] LABS: Alanine Aminotransferase 29 U/L (0-31); Albumin Level 3.9 g/dL (3.5-5.0); Alkaline Phosphatase 63 U/L (39-117); Anion Gap 13 (12-20); Aspartate Amino Transferase 19 U/L (5-31); Bilirubin Direct 0.2 mg/dL (0.0-0.5); Bilirubin Total 0.7 mg/dL (0.0-1.0); Blood Urea Nitrogen 20 mg/dL (9-16); Carbon Dioxide 22 mmol/L (22-29); Chloride 106 mmol/L (96-108); Creatinine Clr Calc Pharmacy 61.6; Estimated Glomerular Filt Rate 56; Glucose Random 103 mg/dL (60-115); Potassium 3.6 mmol/L (3.3-5.1); Sodium 137 mmol/L (135-145); Total Protein 6.7 g/dL (6.5-8.0); Troponin-I High Sensitivity < 2.7 ng/L (<3.5-17.0)
[2023-02-28 07:37] LABS: Appearance Urine Clear; Color Urine Yellow; Glucose Urine UA Negative (Negative); Leukocyte Esterase Urine Small (1+) (Negative); Nitrite Urine Negative (Negative); PH 5.5 (5.0-9.0); Specific Gravity - Urine 1.025 (1.005-1.025); UMIC TRIGGER UACC YES; Urine Blood Negative (Negative); Urine Ketones Negative (Negative); Urine Protein Negative (Neg-Trace)
[2023-02-28 07:41] LABS: Bacteria Urine None Seen (None Seen); Hyaline Casts Urine 0-2 /LPF (0-2); RBC Urine 0-2 /HPF (0-2); Squamous Epithelial Cell Urine 0-2 /HPF (0-2); UACC Culture Trigger YES
[2023-02-28 08:05] LABS: Influenza A PCR NEGATIVE (Negative); Influenza B PCR NEGATIVE (Negative); Resp Syncy Virus RNA Qual PCR NEGATIVE (Negative); SARS COV2 PCR INHOUSE NEGATIVE (Negative)
--- NOTE | 2023-02-28 09:33 | PC.NURSE ---
pt speaking w/ ED provider at this time. family bedside.
== END 2023-02-28 09:59 | disposition home or self-care (01) ==
PROVIDERS: Physician Assistant Medical; Emergency Provider Emergency Medicine; PCP Family Medicine
DX: J40 Bronchitis, not specified as acute or chronic (principal); R06.02 Shortness of breath; R09.81 Nasal congestion; I47.9 Paroxysmal tachycardia, unspecified; Z20.822 Contact with and (suspected) exposure to COVID-19; Z20.828 Contact with and (suspected) exposure to other viral communicable diseases; Z87.891 Personal history of nicotine dependence; Z79.899 Other long term (current) drug therapy
CPT/HCPCS: 0241U; 71046; 80048; 80076; 81001; 83735; 83880; 84484; 85025; 87086; 93005; 99284; 99285

== ENCOUNTER 2023-06-07 10:40 | Outpatient (AMB) | payer MEDICARE, OTHER, SELFPAY ==
[2023-06-07 10:59] VITALS: BP 120/70; PULSE 72
--- NOTE | 2023-06-07 10:59 | MHC.OFFVIS ---
Intake Vital Signs 06/07/23 10:59 Height 5 ft 3 in BMI Reason not done Patient refused/unable BP 120/70 Blood Pressure Location Lt brachial Position Sitting Pulse 72 Intake Visit Reasons: 1 yr follow up Intake Note: 1 year follow-up with ekg c/o sob with stairs and walking Cut Off Saw Grader Required: No Allergies codeine [CODEINE] Allergy (Unknown, Verified 02/22/23 08:37) NAUSEA & VOMITING azithromycin Allergy (Verified 02/22/23 08:37) Angioedema cephalexin [From Keflex] Allergy (Verified 02/22/23 08:37) Rash ibuprofen Allergy (Verified 02/22/23 08:37) Angioedema latex Allergy (Verified 02/22/23 08:37) Rash lisinopril Allergy (Verified 02/22/23 08:37) Angioedema nadolol [From Corgard] Allergy (Verified 02/22/23 08:37) Itching NSAIDS (Non-Steroidal Anti-Inflamma Allergy (Verified 02/22/23 08:37) Angioedema clindamycin Adverse Reaction (Verified 02/22/23 08:37) Rash diltiazem [From Cardizem] Adverse Reaction (Verified 02/22/23 08:37) Headache Aspirin Allergy (Uncoded 02/22/23 08:37) Rash Medication List - Last Reconciled 06/07/23 by Ed Mcclelland MD albuterol sulfate 90 mcg/actuation 2 inhalations inhalation QID PRN benzonatate 100 mg PO TID PRN epinephrine IM hydrochlorothiazide 25 mg PO DAILY hydroxyzine HCl 25 mg PO DAILY prednisone 40 mg PO DAILY PRN verapamil ER 240 mg PO DAILY HPI HPI Comments History of Present Illness Details Susan comes for follow-up. She continues to intermittent episodes of palpitations. She has occasional episodes of prolonged palpitations, her EKG/Apple watch monitoring suggest atrial fibrillation and elevated heart rate. Although there are no EKG recordings as such of the same. Patient complains of skipped heartbeats today and is noted to have PACs frequently. She also complains of increased exertional shortness of breath. However she denies any episodes of orthopnea, PND, leg edema. Blood pressures been generally well controlled. She denies any exertional chest pain. [facility], [facility] Medical History HTN (hypertension) PAC (premature atrial contraction) Surgical History History of lateral meniscus repair of right knee Status post total hip replacement, left Family History Father Aortic aneurysm Heart disease Mother Stroke AAA (abdominal aortic aneurysm) Brother Heart disease Social History Patient Tobacco Use Status: Former Tobacco user Quit Date: quit 15-20 yrs ago Review of Systems Const Denies chills, Denies fatigue, Denies fever(s), Denies frequent falls, Denies weakness, Denies weight gain and Denies weight loss ENT Denies dizziness Card Denies chest pain, Denies leg edema, Denies lightheadedness, Denies palpitations, Denies dyspnea, Denies dyspnea on exertion, Denies orthopnea and Denies other (loss of consciousness) Resp Denies cough, Denies dyspnea and Denies dyspnea on exertion GI Denies hematochezia and Denies change in stool character Musc Denies abnormal gait, Denies muscle weakness, Denies numbness, Denies radiating pain into limb and Denies tingling Neuro Denies Abnormal speech present, Denies abnormal gait, Denies dizziness, Denies frequent falls, Denies numbness, Denies tingling and Denies weakness Endo Denies fatigue and Denies palpitations Physical Exam Vital Signs: Last Vital Signs Pulse 72 06/07/23 10:59 BP 120/70 06/07/23 10:59 Const General: cooperative, comfortable, no acute distress, alert, awake and well groomed Nutritional Appearance: obese Orientation/consciousness: patient oriented x3 Limitations: no limitations Neck Neck: Yes trachea midline, Yes supple and Yes no JVD Resp Effort & Inspection: normal respiratory effort Auscultation: clear to auscultation bilaterally Cardio Jugular venous distension: no JVD Palpation: normal PMI Rate: regular rate Rhythm: abnormal rhythm with ectopic beats Heart sounds: S1 normal heart sound present, S2 normal heart sound present, no click, no gallops and no rubs Peripheral pulses: Peripheral pulses 2+ throughout GI Inspection: Yes obesity Auscultation: normal bowel sounds Skin General skin exam: no rashes or lesions noted Neuro General: patient oriented x3 and no focal motor deficits Speech: No Abnormal speech present Extrem General: Yes no clubbing, cyanosis or edema Office Procedures EKG Details: EKG shows normal sinus rhythm with PACs with nonspecific ST T wave changes [id number], Complete Assessment & Plan Assessment & Plan (1) PAC (premature atrial contraction): Code(s): I49.1 - Atrial premature depolarization Plan: Patient with frequent symptoms and frequent episodes of palpitation some longer lasting, with smart watch last device suggestive atrial fibrillation. She is at risk for atrial fibrillation given her weight as well as prior PACs in strong family history of atrial fibrillation. Will suggest a 30 day event monitor to assess for the same. Will also suggest to avoid stimulants. Stress mitigation strategies to be pursued. Symptomatically she has had improved response to verapamil therapy will continue the same. If she does have atrial fibrillation will require alternative therapy including antiarrhythmic drug therapy if required and oral anticoagulation therapy. This was discussed with her. (2) SOB (shortness of breath): Code(s): R06.02 - Shortness of breath Plan: Patient with increasing symptoms exertional shortness of breath without any overt signs of heart failure. Could be related to her weight and deconditioning. Although she says she exercise on regular basis. She does have family history of cardiomyopathy and does have frequent cardiac arrhythmias. She is at risk for development of cardiomyopathy. Would suggest an echocardiogram to further assess for the same. Further treatment based on the finding. If she does have development of cardiomyopathy process will require more aggressive treatment for her cardiac arrhythmias. Will follow up in the clinic in 1 year's time, sooner p.r.n.. Thank you for allowing me to partake in the care Medications: Changed From prednisone 40 mg (2 x 20 mg) PO DAILY 3 days 6 tabs 0RF To prednisone 40 mg PO DAILY PRN Coding Level of Care Code Est Pt Level 4 (70421) Diagnoses PAC (premature atrial contraction) I49.1 SOB (shortness of breath) R06.02 CPT Codes EKG - CPT: 97145-[id number], Complete ([id number])
== END 2023-06-07 11:28 | disposition home or self-care (01) ==
PROVIDERS: PCP Family Medicine; Visit Provider Internal Medicine Cardiovascular Disease
DX: I49.1 Atrial premature depolarization (principal); R06.02 Shortness of breath
CPT/HCPCS: 93010; 99214

== ENCOUNTER → 2023-06-07 10:40 | Outpatient (BNVA) | payer MEDICARE, OTHER, SELFPAY | PROVIDERS: Visit Provider Internal Medicine Cardiovascular Disease | DX: I49.1 Atrial premature depolarization (principal); R06.02 Shortness of breath | CPT/HCPCS: 93005; 99212 ==

== ENCOUNTER → 2023-06-25 08:04 | Outpatient (REF) | payer MEDICARE, OTHER, SELFPAY ==
--- NOTE | 2023-06-25 08:09 | CA_ITS ---
Transthoracic Echocardiogram Patient (Last, First, Middle): Susan Mesa, Gender: Female Date of : 1950 Age: 72 Procedure Date: 06/25/2023 Procedure Type: Transthoracic Echocardiogram Location: OP Height: 160.02 cm Weight: 104.33 kg BSA: 2.05 m2 Heart Rate: 63 bpm BP: 140 / 80 mmHg Emergency Services Director: KADE Referring MD: Ed Mcclelland MD Production Supply Equipment Tender: Ed Mcclelland MD Symptoms: R00.2 - Palpitations Study Quality: Adequate ECG Rhythm: Sinus with PVCs Conclusions: - 1. Normal LV ejection fraction of 65-70% with pseudonormal filling pattern 2. Mild mitral regurgitation 3. Normal RV systolic pressure 4. Trivial pericardial effusion Findings Left Ventricle Normal left ventricular size, thickness, and systolic function. The visually estimated ejection fraction is between 65-70%. Spectral Doppler is indicative of a pseudonormal filling pattern. E/E prime ratio is between 8 and 15 consistent with indeterminate filling pressures. Peak GLS is -20.1%, within normal limits. Right Ventricle Normal right ventricular cavity size and systolic function. Atria The left atrium is likely dilated. There is no evidence of interatrial shunt. The right atrium is normal in size. Aortic Valve The aortic valve was not well visualized. There is no aortic valve stenosis. There is no aortic valve regurgitation. Mitral Valve There is mild anterior and posterior mitral leaflet thickening. There is mild mitral valve regurgitation. There is no mitral valve stenosis. Pulmonic Valve The pulmonic valve was not well visualized. Tricuspid Valve Likely normal tricuspid valve structure and function. There is mild tricuspid valve regurgitation. The right ventricular systolic pressure is normal. The right ventricular systolic pressure is 23 mmHg. Normal right atrial pressure. There is no evidence of pulmonary hypertension. Great Vessels The pulmonary artery was not well visualized. Venous The inferior vena cava is normal in size and collapses greater than 50% with inspiration. Pericardium/Pleural There is a trivial pericardial effusion. Prior Study Comparison No significant change compared to prior study dated: 07/24/2022. Measurements 2D Linear Measurements IVSd: 0.87 0.6-0.9/0.6-1.0 cm LVIDd: 5.16 3.9-5.3/4.2-5.9 cm LVIDd Index: 2.52 2.4-3.2/2.2-3.1 cm/m2 LVIDs: 3.10 2.0-3.6 cm LVPWd: 0.95 0.7-1.1 cm LA Diam: 3.60 2.7-3.8/3.0-4.0 cm LAIDs Index: 1.76 1.5-2.3 cm/m2 LV Mass: 210.94 67-162/88-224 g LV Mass Index: 102.90 43-95/49-115 g/m2 LVOT Diam: 1.90 3.0+(-)1.3 cm 2D Systolic Function EF 4C: 66.40 >55% EF 2C: 67.80 >55% EF BiP: 66.80 >55% Mitral Valve MV Pk E: 1.10 MV PK A: 0.83 MV Decel Time: 203.00 E/A: 1.30 E'Lateral: 7.62 E'Medial: 5.87 E/E' Med: 18.70 E/E' Lat: 14.40 PHT: 60.00 MVA PHT: 3.67 Decel [place]: 5.44 Aortic Valve AoV Pk Ward: 1.58 AoV Mn Ward: 1.14 AoV VTI: 0.38 AoV Pk Grad: 10.00 Aov Mn Grad: 6.00 NICOLETTE Cont.VTI: 2.16 LVOT LVOT Pk Ward: 1.25 LVOT Mn Ward: 0.88 LVOT VTI: 0.29 LVOT Pk Grad: 6.00 LVOT Mn Grad: 4.00 LVOT Diam: 1.90 LVOT Area: 2.84 Diastolic Function MV Pk E: 1.10 MV Pk A: 0.83 E/A: 1.30 E'Medial: 5.87 E/E' Med: 18.70 E' Laterial: 7.62 E/E' Lat: 14.40 Right Ventricle TAPSE (mm): 21.67 TVS' Ward: 12.47 Tricuspid Valve TR Pk Ward: 2.24 TR Pk Grad: 20.00 RA Press: 3.00 RVSP: 23.00 Great Vessels Aorta Sinus of Valsalva: 3.10 2.0-3.5 cm Ao Asc: 3.60 2.1-3.4 cm Ao Arch: 2.90 Pulmonary Valve PV Pk Ward: 1.24 Peak PV Grad: 6.00 Updated in Other Vendor System with Status of Final Ed Mcclelland MD electronically signed on 06/25/2023 3:45:29 PM with status of Final
--- NOTE | 2023-06-25 08:09 | HM_ITS ---
Cardiac event monitor Indication: Palpitation Technique: Patient was hooked up to cardiac event monitor on 06/25/2023 for total period of 30 days with compliance rate of 60.7%. I was requested to read this study on 08/12/2023. Findings: Baseline was normal sinus rhythm with lowest heart rate of 61 beats per minute fastest heart of 113 beats per minute there were no significant pauses or av conduction abnormality noted. Frequent supraventricular ectopy noted mostly isolated with total burden of 9.1%. Frequent isolated ventricular ectopy noted with total burden of 7.8% Patient reported 3 events of lightheadedness that correlated with either PACs or PAC couplet. Conclusion: 1. Baseline was normal sinus rhythm with no pauses 2. Frequent ectopy both atrial and ventricular without significant runs 3. Patient reported episodes of lightheadedness correlated with isolated PACs MTDD
== END ==
LOC: HO.CARD 08:04
PROVIDERS: PCP Family Medicine; Visit Provider Internal Medicine Cardiovascular Disease
DX: R00.2 Palpitations (principal); R06.02 Shortness of breath
CPT/HCPCS: 93270; 93306; 93356

== ENCOUNTER → 2023-06-25 08:09 | Outpatient (BNV) | payer MEDICARE, OTHER, SELFPAY | PROVIDERS: PCP Family Medicine; Visit Provider Internal Medicine Cardiovascular Disease | DX: I49.1 Atrial premature depolarization (principal) | CPT/HCPCS: 93272; 93306 ==

== ENCOUNTER 2023-07-06 09:44 | Outpatient (AMB) | payer MEDICARE, OTHER, SELFPAY ==
[2023-07-06 10:38] VITALS: BP 130/68; PULSE 67; TEMP 36.6; O2SAT 97; BMI 43.0
--- NOTE | 2023-07-06 10:38 | MHC.OFFWIV ---
Intake Vital Signs 07/06/23 10:38 Height 5 ft 3 in Weight 243 lb BMI 43.0 BP 130/68 Blood Pressure Location Lt brachial Position Sitting Pulse 67 Pulse Source Pulse Oximeter Temp 97.8 F Temp Source Temporal Artery Scan Pulse Oximetry (%) 97 Oxygen Delivery Method Room Air Intake Visit Reasons: EP RT elbow gash Intake Note: pt is here today for elbow gash started 3 days ago Patient Tobacco Use Status: Former Tobacco user Quit Date: quit 15-20 yrs ago Allergies codeine [CODEINE] Allergy (Unknown, Verified 07/06/23 10:38) NAUSEA & VOMITING azithromycin Allergy (Verified 07/06/23 10:38) Angioedema cephalexin [From Keflex] Allergy (Verified 07/06/23 10:38) Rash ibuprofen Allergy (Verified 07/06/23 10:38) Angioedema latex Allergy (Verified 07/06/23 10:38) Rash lisinopril Allergy (Verified 07/06/23 10:38) Angioedema nadolol [From Corgard] Allergy (Verified 07/06/23 10:38) Itching NSAIDS (Non-Steroidal Anti-Inflamma Allergy (Verified 07/06/23 10:38) Angioedema clindamycin Adverse Reaction (Verified 07/06/23 10:38) Rash diltiazem [From Cardizem] Adverse Reaction (Verified 07/06/23 10:38) Headache Aspirin Allergy (Uncoded 02/22/23 08:37) Rash Do you need a note to return to daycare/school/sports/work: No HPI EP RT elbow gash HPI Details Patient slipped and fell on her driveway at 7 pm yesterday. Came this morning for an evaluation of her left elbow PFSH Medical History HTN (hypertension) PAC (premature atrial contraction) Surgical History History of lateral meniscus repair of right knee Status post total hip replacement, left Family History Father Aortic aneurysm Heart disease Mother Stroke AAA (abdominal aortic aneurysm) Brother Heart disease Social History Patient Tobacco Use Status: Former Tobacco user Quit Date: quit 15-20 yrs ago Physical Exam Vital Signs: Last Vital Signs Temp 97.8 F 07/06/23 10:38 Pulse 67 07/06/23 10:38 BP 130/68 07/06/23 10:38 Pulse Ox 97 07/06/23 10:38 Oxygen Delivery Method Room Air 07/06/23 10:38 BMI result Body Mass Index 43.0 Skin Other: Left elbow: 4 cm V shaped lacerated wound. Wound area is clean and granulation tissue appears healthy Office Procedures Laceration Repair Details: V shaped wound on the posterior surface of elbow. Wound cleaned with betadine. Area infiltrated with 2% Lidocaine. 6 sutures 3-0 applied. Patient tolerated the procedure well. Laceration repair performed by: Jose Cruz Lu Explained risks and benefits to parent: Yes Location: left elbow Length: 4 cm Sedation: No Anesthesia: 2% lidocaine Irrigation: saline Preparation: betadine Wound exploration: none Deep closure: No Skin closure: nylon Topical treatment: triple antibiotic Tetanus toxoid ordered: No Patient tolerated procedure: well [id number] Repair 2.6-7.5cm Procedure code (CPT) selection complete Assessment & Plan Assessment & Plan (1) Open wound of left elbow: Code(s): S51.002A - Unspecified open wound of left elbow, initial encounter Plan: Despite the wound being open for more than 12 hours, I decided to suture the wound. The wound was deep and secondary healing would have taken a very long time. the wound appeared clean and extra cleaning with betadine and saline done. Abx prophylaxis prescribed. Orders: Orders Laceration repair Today S51.002A - Unspecified open wound of left elbow, initial encounter Coding Level of Care Code Est Pt Level 3 (42429) Diagnoses Open wound of left elbow S51.002A
== END 2023-07-06 13:39 | disposition home or self-care (01) ==
PROVIDERS: PCP Family Medicine; Visit Provider Internal Medicine
DX: S51.002A Unspecified open wound of left elbow, initial encounter (principal)
CPT/HCPCS: 99213

== ENCOUNTER 2023-07-12 08:33 | Outpatient (AMB) | payer MEDICARE, OTHER, SELFPAY ==
--- NOTE | 2023-07-12 08:42 | MHC.OFFWIV ---
Intake Vital Signs 07/12/23 08:44 Height 5 ft 3 in BMI Reason not done Patient refused/unable BP 130/66 Blood Pressure Location Lt brachial Position Sitting Pulse 78 Pulse Source Pulse Oximeter Temp 98 F Temp Source Oral Pulse Oximetry (%) 95 Oxygen Delivery Method Room Air Intake Visit Reasons: EP Removal of Stitches Intake Note: Pt is here for removal for stitches from last wednesday. Patient Tobacco Use Status: Former Tobacco user Quit Date: quit 15-20 yrs ago Allergies codeine [CODEINE] Allergy (Unknown, Verified 07/12/23 09:15) NAUSEA & VOMITING azithromycin Allergy (Verified 07/12/23 09:15) Angioedema cephalexin [From Keflex] Allergy (Verified 07/12/23 09:15) Rash ibuprofen Allergy (Verified 07/12/23 09:15) Angioedema latex Allergy (Verified 07/12/23 09:15) Rash lisinopril Allergy (Verified 07/12/23 09:15) Angioedema nadolol [From Corgard] Allergy (Verified 07/12/23 09:15) Itching NSAIDS (Non-Steroidal Anti-Inflamma Allergy (Verified 07/12/23 09:15) Angioedema clindamycin Adverse Reaction (Verified 07/12/23 09:15) Rash diltiazem [From Cardizem] Adverse Reaction (Verified 07/12/23 09:15) Headache Aspirin Allergy (Uncoded 07/12/23 09:15) Rash Medication List - Last Reconciled 07/12/23 by Jose Cruz Lu MD albuterol sulfate 90 mcg/actuation 2 inhalations inhalation QID PRN epinephrine IM hydrochlorothiazide 25 mg PO DAILY hydroxyzine HCl 25 mg PO DAILY prednisone 40 mg PO DAILY PRN verapamil ER 240 mg PO DAILY Do you need a note to return to daycare/school/sports/work: No HPI EP Removal of Stitches HPI Details Wound has healed well, would like the sutures removed. [facility] Medical History HTN (hypertension) PAC (premature atrial contraction) Surgical History History of lateral meniscus repair of right knee Status post total hip replacement, left Family History Father Aortic aneurysm Heart disease Mother Stroke AAA (abdominal aortic aneurysm) Brother Heart disease Social History Patient Tobacco Use Status: Former Tobacco user Quit Date: quit 15-20 yrs ago Physical Exam Vital Signs: Last Vital Signs Temp 98 F 07/12/23 08:44 Pulse 78 07/12/23 08:44 BP 130/66 07/12/23 08:44 Pulse Ox 95 07/12/23 08:44 Oxygen Delivery Method Room Air 07/12/23 08:44 Skin Other: Right elbow: Wound has healed, Sutures in place. Assessment & Plan Assessment & Plan (1) Open wound of left elbow: Code(s): S51.002A - Unspecified open wound of left elbow, initial encounter Plan: Sutures removed. Patient tolerated the procedure well. Coding Level of Care Code Est Pt Level 3 (62284) Diagnoses Open wound of left elbow S51.002A
[2023-07-12 08:44] VITALS: BP 130/66; PULSE 78; TEMP 36.6; O2SAT 95
== END 2023-07-12 09:53 | disposition home or self-care (01) ==
PROVIDERS: PCP Family Medicine; Visit Provider Internal Medicine
DX: S51.002A Unspecified open wound of left elbow, initial encounter (principal)
CPT/HCPCS: 99213

== ENCOUNTER 2023-10-28 07:00 | Outpatient (RCR) | payer MEDICARE, OTHER, SELFPAY | END 2023-11-01 14:54 | disposition home or self-care (01) | LOC: HO.PTCHIC 07:00 | PROVIDERS: PCP Family Medicine; Visit Provider Internal Medicine Rheumatology | DX: M70.61 Trochanteric bursitis, right hip (principal); M51.37 Other intervertebral disc degeneration, lumbosacral region | CPT/HCPCS: 97110; 97140; 97162 ==

== ENCOUNTER 2024-03-01 15:09 | Outpatient (REF) | payer MEDICARE, OTHER, SELFPAY ==
--- NOTE | ~2024-03-01 | US_ITS ---
EXAMINATION: US TRIPLEX LOWER EXTREMITY, BILATERAL CLINICAL INFORMATION: Bilateral lower extremity swelling and redness COMPARISON: None available. TECHNIQUE: Color-flow triplex imaging with spectral analysis and compression Doppler were performed on the bilateral lower extremities. FINDINGS: Respiratory variation, normal compression and augmented flow are noted throughout the bilateral lower extremities. The visualized common femoral vein, superficial femoral vein, profunda femoral vein, popliteal vein and midcalf peroneal and posterior tibial venous segments show no evidence of deep venous thrombosis bilaterally. There is no Mcelroy's cyst. US/US venous duplex LE BI IMPRESSION: No evidence of deep venous thrombosis involving the bilateral lower extremities. Electronically signed by: Gilbert Villatoro MD 03/06/2024 08:46 PM EST
== END 2024-03-01 15:10 | disposition home or self-care (01) ==
LOC: HO.US 15:09
PROVIDERS: PCP Family Medicine; Visit Provider Nurse Practitioner Family
DX: R23.8 Other skin changes (principal); M79.662 Pain in left lower leg; R60.0 Localized edema
CPT/HCPCS: 93970

== ENCOUNTER → 2024-03-07 08:45 | Outpatient (BNV) | payer MEDICARE, OTHER, SELFPAY | PROVIDERS: PCP Family Medicine; Visit Provider Internal Medicine | DX: Z12.31 Encounter for screening mammogram for malignant neoplasm of breast (principal) | CPT/HCPCS: 77063; 77067 ==

== ENCOUNTER 2024-03-07 08:48 | Outpatient (REF) | payer MEDICARE, OTHER, SELFPAY ==
--- NOTE | ~2024-03-07 | MM_ITS ---
EXAMINATION: MM SCREENING DIGITAL BREAST TOMOSYNTHESIS, BILATERAL CLINICAL INFORMATION: Screening. Asymptomatic. COMPARISON: Mammography: Comparison is made with available priors TECHNIQUE: Digital breast mammography with tomosynthesis is performed in both the craniocaudal and mediolateral oblique views along with computer-aided detection (CAD). FINDINGS: There are scattered areas of fibroglandular density (ACR BI-RADS breast composition Category b). There are no significant masses, abnormal calcifications, or other abnormalities. MM/MM tomosynthesis screening BI IMPRESSION: No mammographic evidence of malignancy. ASSESSMENT: BI-RADS BI-RADS 1 - Negative RECOMMENDATION: Routine annual mammography screening. 1 year F/U This examination should not preclude the clinical evaluation of a suspicious palpable abnormality. This patient's information was entered into a reminder system with a target due date for their next mammogram. Electronically signed by: Jess Duarte DO 03/15/2024 12:20 PM AMANDA
== END 2024-03-07 08:49 | disposition home or self-care (01) ==
LOC: HO.MAMMO 08:48
PROVIDERS: PCP Family Medicine; Visit Provider Family Medicine
DX: Z12.31 Encounter for screening mammogram for malignant neoplasm of breast (principal)
CPT/HCPCS: 77063; 77067

== ENCOUNTER → 2024-06-08 09:48 | Outpatient (BNVA) | payer MEDICARE, OTHER, SELFPAY | PROVIDERS: PCP Family Medicine; Visit Provider Internal Medicine Cardiovascular Disease | DX: I47.10 Supraventricular tachycardia, unspecified (principal); I10 Essential (primary) hypertension; R00.2 Palpitations | CPT/HCPCS: 93005; 99212 ==

== ENCOUNTER 2024-06-23 09:39 | Outpatient (REF) | payer MEDICARE, OTHER, SELFPAY ==
--- OUTSIDE RECORDS SUMMARY | 2024-06-23 10:14 | XMS_ITS | Patient Health Record ---
Author Organization [facility] Address [address] [place] [address] Support Name Relationship Address Phone RANJAN DASILVA Guarantor Unknown Reason For Referral No Information Medications Medication SIG (Take, Route, Frequency, Duration) Notes Start Date End Date Status Clobetasol Prop Crea-Sandoval Tar Vaginal tw ice daily for -3 [facility]ie- 03/31/2011 Active hydroCHLOROthiazide 20MG 1 ORAL daily for -3 [facility]- 03/31 Active Problems Problem Type SNOMED Code ICD Code Onset Dates Problem Status W/U Status Risk Notes Problem Candidal vulvovaginitis (79311195) Candidiasis of vulva and vagina (112.1) Active confirmed Other Problem Essential hypertension (18943809) Unspecified essential hypertension (401.9) Active confirmed Major Problem Vulvovaginitis (disorder) (95145206) Vaginitis and vulvovaginitis (616.1) Active confirmed Other Plan Of Treatment No Information Insurance Providers Payer Name Payer Address Payer Phone Subscriber Number Group Number Insured Name Patient Relationship to Insured Coverage Start Date Coverage End Date [employer] MEDICARE PPO [address] [place] [address] [phone] [id number] RANJAN DASILVA Self - patient is the insured
[2024-06-23 11:02] LABS: Anion Gap 10 (12-20); Blood Urea Nitrogen 19 mg/dL (9-16); Calcium 9.4 mg/dL (8.4-10.2); Carbon Dioxide 28 mmol/L (22-29); Chloride 107 mmol/L (96-108); Estimated Glomerular Filt Rate > 60; Glucose Random 93 mg/dL (60-115); Potassium 3.3 mmol/L (3.3-5.1); Sodium 142 mmol/L (135-145)
[2024-06-23 11:05] LABS: B Type Natriuretic Peptide 37 pg/mL (<100)
== END 2024-06-23 09:40 | disposition home or self-care (01) ==
LOC: HO.LAB 09:39
PROVIDERS: PCP Family Medicine; Visit Provider Internal Medicine Cardiovascular Disease
DX: R00.2 Palpitations (principal); I47.10 Supraventricular tachycardia, unspecified
CPT/HCPCS: 36415; 80048; 83880

== ENCOUNTER → 2024-07-05 08:31 | Outpatient (REF) | payer MEDICARE, OTHER, SELFPAY ==
--- OUTSIDE RECORDS SUMMARY | 2024-07-05 09:04 | XMS_ITS | Data Portability ---
Author Organization [facility]MBER Kamran Estrada [facility], [facility] Address [address] [place] [address] Care Team Providers Care Exhibit Specialist Name Role Phone DELANO LITTLE Referring Provider DELANO LITTLE Primary Care Provider Assessment Encounter Date Assessment Date Assessment LastModified by Organization Details LastModified Time 01/13/2024 01/13/2024 Assessment: Patient able to ambulate with cane and proper body mechanics. Pt continues to c/o mild groin pain. Mild tightness in ER ROM. Plan: Continue with PT at 2x/week to improve strength as tolerated. Gait training with LRAD and proper body mechanics. [email or web address] Not available 01/13/2024 11:57:06 01/17/2024 01/17/2024 Assessment: Pt continues to c/o mild groin pain, min relief with gentle traction and STM. Mild tightness in ER ROM. Good tolerance to strength progression. Plan: Continue with PT at 2x/week to improve strength as tolerated. Gait training with LRAD and proper body mechanics. [email or web address] Not available 01/18/2024 09:15:59 04/19/2024 04/19/2024 PROBLEM: Status post Right total hip arthroplasty performed on 12/27/23 and right knee osteoarthritis HPI: Patient returns today for follow-up of their total hip arthroplasty. The patient generally states she is doing relatively well. However, she describes pain in her groin specifically with transitioning from sit to stand. She reports she has been doing her home exercise program. She has been discharged for outpatient physical therapy. Patient cannot take anti-inflammatori es. She has been taking Tylenol only at nighttime. She denies any fevers or chills. Past family, medical, social history and review of systems has been reviewed, updated and signed by me and is located in the patient? s chart. EXAM: The patient ambulates with a non-antalgic gait. The surgical wound is well-healed. There is a negative Stinchfield test. There is minimal lateral tenderness. The patient has reproduction of her pain with resisted abduction. She has no pain with internal/ex rotation of her hip. She has a negative Stinchfield test. IMAGING: Previously obtained X-rays reviewed in the office today on [facility] PACS: AP pelvis and right frog lateral show appropriate position of the patient's right total hip arthroplasty. Acetabular position is satisfactory. Stem position is satisfactory. Leg lengths appear appropriate. There is no evidence of fracture or implant failure. IMPRESSION: Status postRight total hip arthroplasty with psoas tendinitis and right knee osteoarthritis PLAN: Based on the patient's physical exam I think she has some ongoing psoas tendinitis. We discussed this in the office today. In addition, patient is requesting intra-articular steroid. She last had steroid in January in the early postoperative period. Patient is getting about 3 months of relief from steroid. I offered the patient she could return to physical therapy for some stretching for psoas. She would like to defer this. I have encouraged her to keep walking but back off a little bit of lower strengthening as a think this may be inflaming things. I think it is premature to consider psoas injection. Can have the patient return to the office and 8 to 12 weeks time for reevaluation. If she continues to have ongoing knee pain she would be a candidate for repeat injection at that point. [facility] speech recognition beer brewer software was used to create portions of this document. An attempt at proofreading has been made to minimize errors. Please call for corrections. [email or web address] Not available 04/19/2024 14:56:56 Plan of Treatment Reminders Order Date Submit Date Provider Last Modified By Organization Details Last Modified Time Details Appointments NEW PATIENT 15 2024 08:45A Sulma Jiang PA-C Not available Not available Not available Lab None recorded. Referral None recorded. Procedures None recorded. Surgeries None recorded. Imaging XR, hip + pelvis, unilatera l, 2 or 3 view - room 206, rthr PO, sjk 2023 024 [facility], [address], [address], [place], [address], 02/11/2024 13:44:45 XR, hip + pelvis, unilatera l, 2 or 3 view - ROOM 201, 1st Post Op, RTHR 4 K 2023 024 [email or web address] [facility], [address], [address], [place], [address], 01/10/2024 14:19:57 Medication Orders tramadol 50 mg tablet 2023 024 [facility] #[id number], [address] [facility] , [place], [address], 04/19/2024 14:20:36 Patient TargetsNo targets recorded. Patient InstructionsNo instructions recorded. Reason for Referral None Reported. Results Created Date Observation Date Name Description Value Unit Range Abnormal Flag Note LastModifiedBy Organization Detail LastModifiedTime 12/27/19 24 12/27/2023 XR, hip + pelvi s, unila teral , 2 or 3 view No observ ation record ed. [address], [address], 12/28/2023 10:08:10 12/27/19 24 12/27/2023 XR, hip + pelvi s, unila teral , 2 or 3 view No observ ation record ed. [address], [address], 12/27/2023 14:22:12 12/31/19 24 03/07/2020 imagi ng/di agnos tic resul t No observ ation record ed. [email or web address] Not Available 12/03 05:30:04 12/31/19 24 09/02/2020 imagi ng/di agnos tic resul t No observ ation record ed. [email or web address] Not Available 12/03 05:30:25 12/31/19 24 09/02/2020 imagi ng/di agnos tic resul t No observ ation record ed. [email or web address] Not Available 12/03 05:30:26 01/10/20 24 01/10/2024 XR, hip + pelvi s, unila teral , 2 or 3 view http:/ [email or web address] ?Encry pted=s hAaTro YD8dLq bEUv6g %2BXZw aYqtaq 0bqfl% 2Fg9IQ a4ajBk vP9nXo QUaueC m3YtLR FvZl JJ8[place] HZtai3 3n5611 AC0Kqa nyAVqe gKiQtr MwF INTERFACE [facility] [address], [place], [address], 01/10/2024 10:56:37 01/10/20 24 01/10/2024 XR, hip + pelvi s, unila teral , 2 or 3 view http:/ /[email or web address]:[email or web address] ?Encry pted=s hAaTro YD8dLq bEUv6g %2BXZw aYqtaq 0bqfl% 2Fg9IQ a4ajBk vP9nXo QUaueC m3YtLR FvZl JJ8[place] HZtai3 4p0881 AC0Kqa nyAVqe gKiQtr MwF INTERFACE [facility] [address], [place], [address], 01/10/2024 10:56:39 01/24/20 24 01/24/2024 XR, hip + pelvi s, unila teral , 2 or 3 view http:/ [email or web address]:[email or web address] ?Encry pted=s hAaTro YD8dLq bEUv6g %2BXZw aYqtaq 0bqfl% 2Fg9IQ a4ajBk vP9nXo QUaueC m3YtLR FvZlgJ [facility]tai[facility] 7m3950 AC0Kqa nqBWKO mKiQtr MwF INTERFACE [facility] [address], [place], [address], 01/24/2024 13:37:59 01/24/20 24 01/24/2024 XR, hip + pelvi s, unila teral , 2 or 3 view http:/ [email or web address]:[email or web address] ?Encry pted=s hAaTro YD8dLq bEUv6g %2BXZw aYqtaq 0bqfl% 2Fg9IQ a4ajBk vP9nXo QUaueC m3YtLR FvZlgJ JJ8mAn HZtai3 8q4755 AC0Kqa nqBWKO mKiQtr MwF INTERFACE [employer] [facility] [address], [place], [address], 01/24/2024 13:38:01 Result Notes None recorded. Problems Name Problem SNOMED Code Status Onset Date Resolution Date Notes Provider Name and Address Organization Details Recorded Time Pain in right hip joint 3030647778992 02 Active 2023 EVITA haas [place] - [facility] 4 09:06:00 Osteoarthr itis of right hip joint 1000754170502 07 Active 2023 Mark Yeboah MD [address], [place], [address] , [facility] 4 08:05:30 Osteoarthr itis of right knee joint 2390672553852 00 Active 2023 Mark Yeboah MD [address], [place], [address] , [facility] - [facility] 4 14:57:04 Pain of right knee joint 1137033915560 00 Active 2020 Status : 'A'; Not Available [facility] 4 10:56:31 Pain of left shoulder joint 9362191248629 9109 Active 2023 CHCAORTA haas [place] - [facility] 4 15:36:53 Problem Notes None recorded. Procedures Surgical History Date Name Laterality Status Provider Name and Address Organization Details Recorded Time 4 Knee Kenalog 40mg 2cc Injection, L/R completed Mark Yeboah MD [address], [place], [address], [facility] 04/19/2024 14:54:52 4 33056 Therapeutic Exercise (1:1) cancelled Jasmyne Shaw DPT [address], [place], [address], [facility] 02/01/2024 09:55:25 4 10861: Manual therapy cancelled Jasmyne Shaw DPT [address], [place], [address], [facility] 02/01/2024 09:55:25 4 25952 Therapeutic Exercise (1:1) completed Deepak Umaña PTA [address], [place], [address], [facility] 01/18/2024 09:16:45 4 10635: Manual therapy completed Deepak Umaña PTA [address], [place], [address], [facility] 01/17/2024 09:43:02 4 68344 Therapeutic Exercise (1:1) completed Jasmyne Shaw DPT [address], [place], [address], [facility] 01/13/2024 11:58:33 4 68851: Manual therapy completed Jasmyne Shaw DPT [address], [place], [address], [facility] 01/13/2024 11:57:14 4 16203 Therapeutic Exercise (1:1) completed Jasmyne Shaw DPT [address], [place], [address], [facility] 01/10/2024 12:20:42 4 99349: Gait training completed Jasmyne Shaw DPT [address] [facility], [place], [address], [facility] 01/10/2024 12:20:50 4 72321 Therapeutic Exercise (1:1) completed Jasmyne Shaw DPT [address], [place], [address], [facility] 01/06/2024 13:19:36 4 18809: Low complexity PT Eval completed Jasmyne Shaw DPT [address], [place], [address], [facility] 01/06/2024 13:19:37 4 G8417 BMI Above Upper Parameters, F/U Documented completed Jasmyne Shaw DPT [address], [place], [address], [facility] 01/06/2024 13:19:32 4 G8427 Current Medication Documented completed Jasmyne Shaw DPT [address], [place], [address], [facility] 01/06/2024 13:19:28 4 Gel-One Knee Injection completed Luis Jiang PA-C [address], [place], [address], [facility] 11/08/2023 07:28:44 4 Sports Knee 4&1 completed Luis Jiang PA-C [address], [place], [address], [facility] 11/02/2023 07:33:04 4 Sports Knee 4&1 completed Luis Jiang PA-C [address], [place], [address], [facility] 08/26/2023 07:35:33 04/05/202 4 Sports Shoulder 4&1 completed Benitez Avendano MD [address] [facility], [place], [address], [place] - [facility] 08/06/2023 16:27:27 Imaging Results Imaging Date Name Status LastModified by Organiz ation Details LastModified Time 12/27/2023 XR, hip + pelvis, unilateral, 2 or 3 view completed [address], [address], 12/28/2023 10:08:10 12/27/2023 XR, hip + pelvis, unilateral, 2 or 3 view completed [address], [address], 12/27/2023 14:22:12 03/07/2020 imaging/diag nostic result completed Information not available 12/31/2023 05:30:04 09/02/2020 imaging/diag nostic result completed Information not available 12/31/2023 05:30:25 09/02/2020 imaging/diag nostic result completed Information not available 12/31/2023 05:30:26 01/10/2024 XR, hip + pelvis, unilateral, 2 or 3 view completed INTERFACE [facility] [address], [place], [address], 01/10/2024 10:56:37 01/10/2024 XR, hip + pelvis, unilateral, 2 or 3 view completed INTERFACE [facility] [address], [place], [address], 01/10/2024 10:56:39 01/24/2024 XR, hip + pelvis, unilateral, 2 or 3 view completed INTERFACE [facility] [address], [place], [address], 01/24/2024 13:37:59 01/24/2024 XR, hip + pelvis, unilateral, 2 or 3 view completed INTERFACE [facility] [address], [place], [address], 01/24/2024 13:38:01 Procedure Notes None recorded. Medical Equipment None Reported. Allergies Allergen ID Allergen Name Allergen Category Reaction Reaction Severity Criticality Documentation Date Start Date Code Code System Note Provider Name and Address Organization Details Recorded Time 85671 Medicinal product acting as adhesive (product) environme nt,medica tion Not available Not available Not available 07/05/20232022 09117 2009 SNOMED Not Available [facility] 4 11:24:36 70790 Keflex medicatio n Not available Not available Not available 07/05/20232019 42734 7 RxNorm Not Available [facility] 4 11:24:36 95637 lisinopri l medicatio n Not available Not available Not available 07/05/20232022 64435 RxNorm Not Available [facility] 4 11:24:36 77172 aspirin medicatio n Not available Not available Not available 07/05/20232019 1191 RxNorm Not Available [facility] 4 11:24:36 61865 codeine medicatio n Not available Not available Not available 07/05/20232019 2670 RxNorm Not Available [facility] 4 11:24:36 31994 latex environme nt,medica tion Not available Not available Not available 07/05/20232019 09903 91 RxNorm Not Available [facility] 4 11:24:36 Medications Name Sig Start Date Stop Date Status Note LastModified by Organization Details LastModified Time amoxicillin 500 mg capsule TAKE 4 CAPSULES BY MOUTH 1 HOUR PRIOR TO PROCEDURE active Not Available Not Available No t Available desonide 0.05 % topical cream APPLY TO AFFECTED AREA EVERY DAY 04/19 completed Not Available Not Available Not Available prednisone 10 mg tablet TAKE 2 TABLETS BY MOUTH DAILY FOR 7 DAYS 04/19 completed Not Available Not Available Not Available azithromyci n 250 mg tablet TAKE 2 TABLETS BY MOUTH TODAY, THEN TAKE 1 TABLET DAILY FOR 4 DAYS DIRECTED 04/19 completed Not Available Not Available Not Available fluconazole 150 mg tablet 11/29 completed Not Available Not Available Not Available benzonatate 200 mg capsule TAKE 1 CAPSULE BY MOUTH THREE TIMES A DAY FOR 7 DAYS 04/19 completed Not Available Not Available Not Available ondansetron HCl 4 mg tablet TAKE 1 TABLET BY MOUTH EVERY 8 HOURS NEEDED FOR NAUSEA AND VOMITING 04/19 completed Not Available Not Available Not Available prednisone 20 mg tablet TAKE 2 TABLETS BY MOUTH EVERY DAY FOR 3 DAYS 11/29 completed Not Available Not Available Not Available sulfamethox azole 800 mg-trimetho prim 160 mg tablet TAKE 1 TABLET BY MOUTH TWICE A DAY FOR 7 DAYS 11/29 completed Not Available Not Available Not Available tramadol 50 mg tablet 1-2 tablets every 6 hours as needed for pain 04/19 completed Not Available Not Available Not Available ketorolac 0.5 % eye drops INSTILL 1 DROP IN OPERATIVE EYE TWICE A DAY START 2 DAYS PRIOR TO SURGERY. active Not Available Not Available No t Available benzonatate 100 mg capsule TAKE 1 CAPSULE BY MOUTH 3 TIMES A DAY NEEDED. 11/29 completed Not Available Not Available Not Available pantoprazol e 40 mg tablet,adolph yed release TAKE 1 TABLET BY MOUTH EVERY DAY 04/19 completed Not Available Not Available Not Available erythromyci n 5 mg/gram (0.5 %) eye ointment LOCATION: BOTH EYES. APPLY TO BILATERAL UPPER AND LOWER LIDS AT BEDTIME 04/19 completed Not Available Not Available Not Available clotrimazol e-betametha sone 1 %-0.05 % topical cream APPLY TOPICALLY TWICE A DAY UNTIL RESOLVED active Not Available Not Available No t Available Advair Diskus 250 mcg-50 mcg/dose powder for inhalation TAKE 1 PUFF BY MOUTH TWICE A DAY active Not Available Not Available No t Available hydroxyzine HCl 25 mg tablet TAKE 1 TABLET BY MOUTH NIGHTLY AT BEDTIME NEEDED. active Not Available Not Available No t Available hydrochloro thiazide 25 mg tablet TAKE 1 TABLET (25 MG TOTAL) BY MOUTH DAILY. active Not Available Not Available No t Available furosemide 20 mg tablet TAKE 1 TABLET BY MOUTH EVERY DAY NEEDED FOR EDEMA active Not Available Not Available No t Available clobetasol 0.05 % topical ointment APPLY TO AFFECTED AREA TWICE WEEKLY OR DIRECTED 04/19 completed Not Available Not Available Not Available nystatin 100,000 unit/gram topical powder APPLY TOPICALLY 4 TIMES A DAY NEEDED. active Not Available Not Available No t Available epinephrine 0.3 mg/0.3 mL injection, auto-inject or INJECT 0.3 ML (0.3 MG TOTAL) INTO THE MUSCLE ONCE NEEDED. active Not Available Not Available No t Available levofloxaci n 500 mg tablet TAKE 1 TABLET (500 MG TOTAL) BY MOUTH DAILY. 04/19 completed Not Available Not Available Not Available albuterol sulfate HFA 90 mcg/actuati on aerosol inhaler USE 2 INHALATIO NS BY MOUTH 6 TIMES PER DAY active Not Available Not Available No t Available verapamil ER 240 mg 24 hr capsule,ext ended release TAKE 1 CAPSULE BY MOUTH EVERY DAY active Not Available Not Available No t Available neomycin 3.5 mg/g-polymy anya B 10,000 unit/g-dexa meth 0.1 % eye oint APPLY 1 A SMALL AMOUNT ON EYELID ONCE A DAY 11/29 completed Not Available Not Available Not Available hydroxyzine HCl 04/19 completed Not Available Not Available Not Available hydrochloro thiazide 04/19 completed Not Available Not Available Not Available verapamil 11/29 completed Not Available Not Available Not Available Advair Diskus active Not Available Not Available Not Available oxycodone 10 mg tablet TAKE 1/2 (HALF) TO 1 TABLET BY MOUTH EVERY 3 HOURS NEEDED FOR SEVERE PAIN. 04/19 completed Not Available Not Available Not Available Eliquis 2.5 mg tablet TAKE 1 TABLET BY MOUTH TWO TIMES A DAY 04/19 completed Not Available Not Available Not Available clobetasol 0.025 % topical cream APPLY A THIN LAYER TO THE AFFECTED AREA(S) BY TOPICAL ROUTE 2 TIMES PER DAY ; RUB IN GENTLY AND COMPLETEL Y active Not Available Not Available No t Available Zepbound 5 mg/0.5 mL subcutaneou s pen injector INJECT 0.5 ML (5 MG TOTAL) UNDER THE SKIN ONE TIME PER WEEK 11/29 completed Not Available Not Available Not Available Zepbound 2.5 mg/0.5 mL subcutaneou s pen injector INJECT 0.5 ML (2.5 MG) SUBCUTANE OUSLY ONE TIME PER WEEK active Not Available Not Available No t Available Vitals Date Recorded Body height Body mass index (BMI) Body weight Provider Name and Address Organization Details Last Updated DateTime 01/10/2024 158.75 cm 39.6 kg/m2 81152.32 g Jonathan Underwood [facility] 01/10/2024 10:33:17 Date Recorded Body height Body mass index (BMI) Body weight Provider Name and Address Organization Details Last Updated DateTime 01/24/2024 158.75 cm 39.6 kg/m2 57287.32 g Rekha Ayoubton [facility] 01/24/2024 13:21:07 Date Recorded Body height Body mass index (BMI) Body weight Provider Name and Address Organization Details Last Updated DateTime 04/19/2024 158.75 cm 39.6 kg/m2 44809.32 g Joseph Vang [facility] 04/19/2024 14:17:33 Social History None recorded. Functional Status None recorded. Mental Status None recorded. Family History Nothing Reported. Medical History Condition Response Allergies/Hayfever N Coronary Artery Disease N Anxiety/Depression N Emphysema N Thyroid Problems N COPD N Pacemaker N Anemia N Kidney/Bladder Problems N Vascular Disease N Gastrointestinal Disease N Heart Attack ([place]) N Diabetes N Autoimmune disease N Bleeding Disorder N Orthotics N Seizures/Epilepsy N Arthritis N Blood Clot N AIDS/HIV N Congestive Heart Failure (CHF) N Acid Reflux (GERD) N Cancer N Stroke N Asthma N Peripheral Vascular Disease N Sleep Apnea N Hepatitis N Heart Disease N Rheumatoid Arthritis N Pulmonary Embolism N Arrhythmia N Fibromyalgia N Hypertension Y Osteoporosis N Gynecological HistoryNo gynecological history recorded. Obstetrics History GPAL:G 0 P 0 0 0 0 Past Encounters Encounter ID Performer Location Encounter Start Date Encounter Closed Date Diagnosis/Indication Diagnosis SNOMED-CT Code Diagnosis ICD10 Code Diagnosis Note [id number] MD Monica Dawson [address] [place] [address] 08/06/2023 15:06:41 08/27/2023 10:46:17 Pain of left shoulder joint 6874380165 3263146 M25.810 [id number] CRISTELA Thomas [address] [place] [address] 08/26/2023 08:53:31 09/17/2023 12:24:38 Osteoarthritis of right knee joint 5927580149 67636 M17.11 [id number] Luis Jiang PA-C [facility] [address] [place] [address] 11/01/2023 08:54:35 11/24/2023 16:05:31 Pain in right hip joint 9682161761 77874 M25.551 Osteoarthr itis of right knee joint 9953386908 32990 M17.11 [id number] Luis Jiang PA-C [facility] [address] [place] [address] 11/08/2023 08:42:18 11/26/2023 12:50:27 Osteoarthritis of right knee joint 3878733595 09792 M17.11 Pain of ri ght knee joint 7383069708 05905 M25.633 [id number] MD Tee [facility] [address] [place] [address] 11/30/2023 08:15:18 12/20/2023 11:48:53 Osteoarthritis of right hip joint 1846479614 01097 M16.11 [id number] Queenie Hernandez PA-C [facility] [address] [place] [address] 12/23/2023 10:55:02 01/18/2024 04:08:42 [id number] Mark Yeboah MD [facility] [address] [place] [address] 01/06/2024 10:26:52 01/06/2024 11:04:25 Aftercare 133053979 Z47.1 Z96.930 [id number] BOB BernsteinT [facility] [address] [place] [address] 01/10/2024 11:23:04 01/10/2024 12:09:04 Aftercare 042448023 Z47.1 Z96.274 [id number] Luis Jiang PA-C [facility] [address] [place] [address] 01/10/2024 10:24:16 01/10/2024 12:19:46 History of total replacement of right hip joint 3135976456 09051 Z96.641 Trochanter ic bursitis of right hip 7785986402 56398 M70.61 [id number] Jasmyne Shaw, DPT [facility] [address] [place] [address] 01/13/2024 11:00:43 01/13/2024 11:38:17 Aftercare [id number] Z47.1 Z96.522 [id number] Troy Parker, PT [facility] [address] [place] [address] 01/17/2024 09:24:05 01/17/2024 10:04:38 Aftercare [id number] Z47.1 Z96.046 [id number] Luis Jiang PA-C [facility] [address] [place] [address] 01/24/2024 13:12:41 02/11/2024 13:44:45 History of total replacement of right hip joint 8621064030 72282 Z96.005 [id number] Mark Yeboah MD [facility] [address] [place] [address] 04/19/2024 14:03:47 05/11/2024 11:40:34 History of total replacement of right hip joint 0770170866 31777 Z96.641 Osteoarthr itis of right knee joint 1636838315 92005 M17.11 Health Concerns Section Related Observation LastModified by Organization Detai ls LastModified Time None Recorded Concern Status LastModified by Organization Details LastModified Time None Recorded Advance Directives Directive None Recorded Payers Encounter Date Sequence Insurance Name Policy Number Policy Ryan Covered Member ID Ryan Member ID Guarantor Name 01/10/2024 2 [employer] - GIC INDEMNITY PLAN (MEDICARE SUPPLEMENT) [id number] Susan Mesa [id number] Susan Mesa 01/10/2024 1 [place] [employer] Susan Mesa [id number] Susan Mesa 01/13/2024 2 [employer]IC[employer] - GIC INDEMNITY PLAN (MEDICARE SUPPLEMENT) [id number] Susan Mesa [id number] Susan Mesa 01/13/2024 1 [place] [employer] Susan Mesa [id number] Susan Mesa 01/17/2024 2 [employer]IC[employer] - GIC INDEMNITY PLAN (MEDICARE SUPPLEMENT) [id number] Susan Mesa [id number] Susan Mesa 01/17/2024 1 [place] [employer] Susan Mesa [id number] Susan Mesa 01/24/2024 2 [employer]IC[employer] - GIC INDEMNITY PLAN (MEDICARE SUPPLEMENT) [id number] Susan Mesa [id number] Susan Mesa 01/24/2024 1 [place] [employer] [facility] [employer] Susan Mesa [id number] Suasn Mesa 04/19/2024 2 UNICARE - GIC INDEMNITY PLAN (MEDICARE SUPPLEMENT) [id number] Susan Anthony Mesa [id number] Susan Mesa 04/19/2024 1 MEDICARE B-[place]: [employer] Susan Mesa [id number] Susan Mesa Notes Date Note Type Note Provider Name and Address Organization Details Recorded Time 01/10/2024 text/html I am seeing the patient today under the supervision of DrFilemon {{Bertram frank}}who was available but who did not see the patient. HISTORY OF PRESENT ILLNESS The patient presents today for follow-up, now two weeks status post {{left right*}} total hip arthroplasty. Overall progressing nicely, happy with results. No significant complaints of pain.No neurovascular changes. PAST MEDICAL/SURGICAL HISTORY Reviewed today, otherwise unchanged per intake sheet REVIEW OF SYSTEMS Systemic: No fever and no chills. Cardiovascular: No chest pain or discomfort. Pulmonary: No dyspnea. PHYSICAL FINDINGS General Appearance: Well developed. n no acute distress. Musculoskeletal System: Hips: Right Hip: Hip was not tender on palpation. No pain was elicited by active motion. No pain was elicited by passive motion. Lower Leg: General/bilateral: Calves of both lower legs were not tender on palpation. Neurological: Oriented to time, place, and person. Gait And Stance: An operative sided antalgic gait was observed with assistive device. Psychiatric: Mood was appropriate to the affect. Skin: Physical examination of the []hip revelas the incision to be intact, no erythema or drainage, no evidence of infection. 4/5 strength, normal sensation. Contralateral side shows no warmth, erythema, soft tissue swelling, or effusion. TESTS X-rays ordered, obtained, and reviews today at [facility], two views, reveal maintained alignment of the prosthetic components, no fracture or dislocation,excelle nt interface ASSESSMENT Progressing nicely two weeks status post {{left right*}} total hip arthroplasty. PLAN Reviewed total hip precautions with the patient, who showed good understanding, and will continue to monitor for any evidence of infection, Follow-up in one month for re-evaluation, sooner if there is any complications. Luis Jiang PA-C [address], [place], [address], [facility] 01/10/2024 12:00:02 01/10/2024 text/html Patient had rech flynn with PAC prior to PT and happy with the result. Pt arrives ambulating with walker and no antalgic mechanics.Pains 6/10 at rest BOB BernsteinT [address], [place], [address], [facility] 01/10/2024 12:39:11 01/13/2024 text/html Patient had rech flynn with PAC prior to PT and happy with the result. Pt arrives ambulating with walker and no antalgic mechanics.01/12 Pt states she felt some groin pain with BKFO exercise at home but overall doing okay. Pt walks with her cane.Pains 6/10 at rest BOB BernsteinT [address], [place], [address], [facility] 01/13/2024 11:59:03 01/17/2024 text/html Pt reports increased discomfort to groin. More of a pulling than pain always constant. 6/10 pain. Deepak Umaña, ALVINA [address], [place], [address], [facility] 01/18/2024 09:17:28 01/24/2024 text/html I am seeing the patient today under the supervision of {{Edilia* Nelda}} who was available but who did not see the patient. 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 Overall progressing nicely. Continues to be happy with results. No significant complaints of pain.No neurovascular changes. PAST MEDICAL/SURGICAL HISTORY Reviewed today, otherwise unchanged per intake sheet REVIEW OF SYSTEMS Systemic: No fever and no chills. Cardiovascular: No chest pain or discomfort. Pulmonary: No dyspnea. PHYSICAL FINDINGS General Appearance: ? Well developed. ? In no acute distress. Musculoskeletal System: Hips: Right Hip: ? Hip was not tender on palpation. ? No pain was elicited by active motion. ? No pain was elicited by passive motion. Lower Leg: General/bilateral: ? Calves of both lower legs were not tender on palpation. Neurological: ? Oriented to time, place, and person. Gait And Stance: ? A left-sided antalgic gait was observed with assistive device. Psychiatric: ? Mood was appropriate to the affect. Skin: ? Skin: Physical examination of the hip revelas the incision to be healing nicely, no erythema or drainage, no evidence of infection. 4/5 strength, normal sensation. Contralateral side shows no warmth. erythema, soft tissue swelling, or effusion TESTS X-rays ordered, obtained, and reviews today at [facility], two views reveal maintained alignment of the prosthetic components, no fracture or dislocation,excelle nt interface. ASSESSMENT Progressing nicely four weeks status post {{left right*}} total hip arthroplasty. PLAN The patient is progressing nicely, Is going to continue total hip precautions which were reviewed today wit the patient, who showed good understanding, The patient is going to continue to monitor for any evidence of infection, Follow-up in 2 months for re-evaluation, sooner if there are any complications. Luis Jiagn PA-C [address], [place], [address], [facility] 01/24/2024 14:29:40 OBGyn Episode No OBEpisode recorded.
--- OUTSIDE RECORDS SUMMARY | 2024-07-05 09:04 | XMS_ITS | Patient Health Record ---
Author Organization [facility] Address [address] [place] [address] Support Name Relationship Address Phone RANJAN DASILVA Guarantor Unknown Reason For Referral No Information Medications Medication SIG (Take, Route, Frequency, Duration) Notes Start Date End Date Status Clobetasol Prop Crea-Prowers Tar Vaginal tw ice daily for -3 Mannie- 03/31/2011 Active hydroCHLOROthiazide 20MG 1 ORAL daily [place]3 [facility] [place] Active Problems Problem Type SNOMED Code ICD Code Onset Dates Problem Status W/U Status Risk Notes Problem Candidal vulvovaginitis (85108959) Candidiasis of vulva and vagina (112.1) Active confirmed Other Problem Essential hypertension (34137643) Unspecified essential hypertension (401.9) Active confirmed Major Problem Vulvovaginitis (disorder) (46028645) Vaginitis and vulvovaginitis (616.1) Active confirmed Other Plan Of Treatment No Information Insurance Providers Payer Name Payer Address Payer Phone Subscriber Number Group Number Insured Name Patient Relationship to Insured Coverage Start Date Coverage End Date [employer]BS MEDICARE PPO [address] [place] [address] [phone] [id number] RANJAN DASILVA Self - patient is the insured
== END ==
LOC: HO.CARD 08:31
PROVIDERS: PCP Family Medicine; Visit Provider Internal Medicine Cardiovascular Disease
DX: R00.2 Palpitations (principal); I47.10 Supraventricular tachycardia, unspecified
CPT/HCPCS: 93242

== ENCOUNTER → 2024-07-05 08:33 | Outpatient (BNV) | payer MEDICARE, OTHER, SELFPAY | PROVIDERS: PCP Family Medicine; Visit Provider Internal Medicine Cardiovascular Disease | DX: I49.1 Atrial premature depolarization (principal) | CPT/HCPCS: 93244 ==

== ENCOUNTER 2025-03-23 08:11 | Outpatient (REF) | payer MEDICARE, OTHER, SELFPAY ==
--- NOTE | ~2025-03-23 | MM_ITS ---
EXAMINATION: MM SCREENING DIGITAL BREAST TOMOSYNTHESIS, BILATERAL CLINICAL INFORMATION: Screening. Asymptomatic. COMPARISON: Mammography: Comparison is made with available priors TECHNIQUE: Digital breast mammography with tomosynthesis is performed in both the craniocaudal and mediolateral oblique views along with computer-aided detection (CAD). FINDINGS: There are scattered areas of fibroglandular density. Right: Asymmetry lateral breast anterior depth on CC view. No suspicious calcifications or other abnormal findings. Left: There are no significant masses, abnormal calcifications, or other abnormalities. MM/MM tomosynthesis screening BI IMPRESSION: Additional imaging is recommended ASSESSMENT: BI-RADS Category 0: Incomplete - Need additional Imaging Evaluation RECOMMENDATION: 1. Additional views of the right breast. 2. Targeted ultrasound if warranted after review of the additional views. 3. Radiology department staff will contact the patient for additional imaging. Additional Imaging required Electronically signed by: Jess Duarte DO 03/26/2025 05:42 PM [facility]
--- OUTSIDE RECORDS SUMMARY | 2025-03-23 08:14 | XMS_ITS | Encounter Summary ---
Author Organization [facility] Address [address] [place] [address] Phone Care Team Providers Care Wool Scourer Name Role Phone Lara Cox MD Primary Care Provider + [phone] Lara Cox MD Unavailable [phone] Encounter Details Date Type Department Care Team (Late st Contact Info) Description 05/13/2023 Procedure Pass OR Admitting Dept - Virtual Department [address] [place] [address] Social History Tobacco Use Types Packs/Day Years Used Date Smoking Tobacco: Former Cigarettes 0.3 33 1 978 - 2011 Smokeless Tobacco: Never Comments:on and off Alcohol Use Standard Drinks/Week Comments Yes 1 (1 standard drink = 0.6 oz pur e alcohol) Per week Child or Family Care Answer Date Record ed Do you have problems with on e of the following making it difficult for you to work, study, or receive health care? No 04/13/2023 Education Answer Date Recorded Are you interested in help w ith more adult education (for example, completing high school, GED, job training, learning the [place] language, technical skills, or developing parenting skills)? No 11/10/2021 Food Answer Date Recorded Within the past 6 months we worried whether our food would run out before we got money to buy more. Never True 04/13/2023 Within the past 6 months the food we bought just didn't last and we didn't have enough money to get more. Never True Residential Stability Answer Date Recor ded What is your housing situation today? I have marbella ibarra 04/13/2023 How many times have you move d in the past 12 months? Zero (I did not move) 04/13/2023 Paying for Meds Answer Date Recorded Do you have trouble paying for medicines? No 04/13/2023 Paying Utility Bills Answer Date Record ed Do you have trouble paying your heating or elect ricity bill? No 04/13/2023 Transportation Answer Date Recorded Has the lack of transportati on kept you from medical appointments or from getting medications? No 04/13/2023 Unemployment Answer Date Recorded Are you currently unemployed or working on a part-time or temporary basis, and looking for work? No 11/10/2021 Digital Access Answer Date Recorded No 04/13/2023 Yes 04/13/2023 Do you have reliable internet access at home? Ye s 04/13/2023 Do you have a device (e.g., phone, tablet, computer) with a working camera? Yes 04/13/2023 Intimate Partner Violence Answer Date R ecorded Are you denied basic needs s uch as food, clothing, or medical care? No 05/13/2023 In the past 12 months have y ou been in a relationship with a person who hurts, threatens, or tries to control you? No 05/13/2023 Are you denied basic needs s uch as food, clothing, or medical care? No 05/13/2023 In the past 12 months have y ou been in a relationship with a person who hurts, threatens, or tries to control you? No 05/13/2023 Comments No Sex and Gender Information Value Date Recorded Sex Assigned at Not on file Legal Sex Female 10:36 PM EDT Gender Identity Female 01/17/2022 9:21 AM EDT Sexual Orientation Not on file documented as of this encounter Plan of Treatment Upcoming Encounters Date Type Department Care Team (Late st Contact Info) Description 06/13/2025 9:20 AM EST Office Visit [facility] [address] [place] [address] Lara Cox MD [address] [facility] [address] [place] [address] 03/08/2026 10:00 AM EST Office Visit [facility] [address] [place] [address] Lara Cox MD [address] [facility] [address] [place] [address] documented as of this encounter Visit Diagnoses Not on filedocumented in this encounter Additional Health Concerns Assessment Noted Time PHQ-2 Depression Total Score: 0 04/14/20 10:04 AM EST documented as of this encounter Care Teams Wool Scourer Relationship Specialty Start Date End Date Lara Cox MD [address] [facility] [place] [address] PCP - General Family Medicine 09/06/20 Lara Cox MD [address] [facility] [place] [address] Insurance Assigned Provider 08/07/23 documented as of this encounter Additional Source Comments The information contained in this document represents components of the legal health record. It is not the complete legal health record.[facility]
--- OUTSIDE RECORDS SUMMARY | 2025-03-23 08:14 | XMS_ITS | Encounter Summary ---
Author Organization [facility] Address [address] [place] [address] Phone Care Team Providers Care Ear Specialist Name Role Phone Jessy Johnson DO Primary Care Provider + [phone] Jessy Johnson DO Unavailable [phone] Lara Cox MD Primary Care Provider [phone] Lara Cox MD Unavailable [phone] Encounter Details Date Type Department Care Team (Late Contact Info) Description 11/10/2019 Procedure Pass OR Admitting Dept - Virtual Department [address] [place] [address] Social History Tobacco Use Types Packs/Day Years Used Date Smoking Tobacco: Former Cigarettes 0.3 15 1 6 - 2010 Smokeless Tobacco: Never Comments:on and off Alcohol Use Standard Drinks/Week Comments Yes 1 (1 standard drink = 0.6 oz pur e alcohol) Comments No Sex and Gender Information Value Date Recorded Sex Assigned at Not on file Legal Sex Female 10:36 PM EDT Gender Identity Female 01/17/2022 9:21 AM EDT Sexual Orientation Not on file documented as of this encounter Plan of Treatment Upcoming Encounters Date Type Department Care Team (Late Contact Info) Description 06/13/2025 9:20 AM EST Office Visit [facility] [address] [facility] [facility] [facility] [address] [place] [address] Lara Cox MD [address] [facility] [address] [place] [address] [email or web address] 03/08/2026 10:00 AM EST Office Visit [facility] [address] [facility] [address] [place] [address] Lara Cox MD 15 [facility]. [address] [place] [id number] [email or web address] documented as of this encounter Visit Diagnoses Not on filedocumented in this encounter Additional Health Concerns Infection Onset Date Last Indicated Resolved Time CoV-Exposed Comment:Recent close contact 02/02/2020 02/02/2020 02/16/2020 1:24 AM EDT CoV-Risk 04/11/2020 04/11/2020 04/25/2020 1:26 AM EST CoV-Presumed 09/11/2021 09/11/2021 10/02/2021 1:22 AM EDT Assessment Noted Time PHQ-2 Depression Total Score: 0 06/22/19 3:14 PM EST documented as of this encounter Care Teams Ear Specialist Relationship Specialty Start Date End Date Jessy Johnson DO [address] [place] [address] [email or web address] PCP - General Family Medicine 06/07/18 09/05/20 Lara Cox MD [address] [address] [email or web address] PCP - General Family Medicine 09/06/20 Jessy Johnson DO [address] [place] [address] [email or web address] Insurance Assigned Provider 08/09/19 08/09/21 Lara Cox MD [address] [address] [email or web address] Insurance Assigned Provider 08/07/23 documented as of this encounter Additional Source Comments The information contained in this document represents components of the legal health record. It is not the complete legal health record.[facility]
--- OUTSIDE RECORDS SUMMARY | 2025-03-23 08:14 | XMS_ITS | Clinical Summary ---
Author Organization [facility] Address [address] [place] [id number] Phone Care Team Providers Care Special Education Supervisor Name Role Phone Lara Cox MD Primary Care Provider [phone] Lara Cox MD Unavailable [phone] Allergies Active Allergy Reactions Criticality Noted Date Comments Adhesive Rash Low 01/07/2023 Paper tape is the allergen; does OK with bandaids etc Azithromycin Rash Low 12/08/2022 Possible allergy rash swelling face neck chest after 2 days Cephalexin Rash Low 03/29/2017 Chlorhexidine Gluconate Rash Low 12/08/2022 Clindamycin Rash Low 12/08/2022 Codeine Nausea and/or Vomiting 10/20/2019 Diltiazem Hcl Headaches 12/08/2022 Fluticasone Rash,Angioedema High 02/21/2020 Hydrocodone-Acetaminoph en Nausea and/or Vomiting 12/08/2022 Has been OK with oxycodone Hydromorphone Nausea and/or Vomiting 12/08/2022 Latex, Natural Rubber Anaphylaxis High 03/29/2017 Lisinopril Cough Low 03/29/2017 Nadolol Cough,Headaches 12/08/2022 Nsaids (Non-Steroidal Anti-Inflammatory Drug) Anaphylaxis High 03/29/2017 context for this reaction made the true allergen unclear but took ibuprofen again and had immediate angioedema Phenylephrine-Acetamino phen Angioedema High 04/10/2020 Medications acetaminophen (TYLENOL ORAL) Take by mouth as needed. Active verapamiL (VERELAN) 240 MG 24 hr capsule Take 1 capsule by mouth every morning. 3 Active nystatin (NYSTOP) powderIndication s:Intertrigo Apply topically 4 (four) times a day as needed. 60 g 2 4 Active docusate sodium (COLACE) 100 MG capsule Take 100 mg by mouth as needed for mild constipation or moderate constipation. 4 Active polyethylene glycol 3350 (MIRALAX ORAL) Take 17 g by mouth as needed. 4 Active senna (SENOKOT) 8.6 mg tablet Take 8.6 mg by mouth as needed for constipation. 4 Active clobetasol (TEMOVATE) 0.05 % ointmentIndicati ons:Lichen sclerosus APPLY TO AFFECTED AREA TWICE WEEKLY OR DIRECTED 30 g 5 4 Active albuterol 90 mcg/actuation inhaler Inhale 2 puffs into the lungs every 6 (six) hours as needed for wheezing or shortness of breath/dyspnea. Active amoxicillin (AMOXIL) 500 MG capsule 4 pills 1 hour prior to procedure 5 Active apixaban (ELIQUIS) 2.5 mg Take 5 mg by mouth 2 (two) times a day. Active prednisoLONE acetate (PRED FORTE) 1 % ophthalmic suspension Place 1 drop into each eye daily. Active estradioL (ESTRACE) 0.01 % (0.1 mg/gram) vaginal creamIndications :Lichen sclerosus Apply thin film to affected areas every other day. 42.5 g 1 5 Active EPINEPHrine (EPIPEN 2-NORA) 0.3 mg/0.3 mL auto-injectorInd ications:Multipl e allergies Inject 0.3 mL (0.3 mg total) into the muscle as needed for anaphylaxis. 1 each 1 5 Active tirzepatide, weight loss, (ZEPBOUND) 10 mg/0.5 mL subcutaneous solution vial Inject 0.5 mL (10 mg total) under the skin every 7 days. 6 mL 5 Active hydrOXYzine (ATARAX) 25 MG tabletIndication s:Multiple allergies Take 1 tablet (25 mg total) by mouth nightly at bedtime as needed for anxiety. 90 tablet 3 5 Active hydroCHLOROthiaz jordan 25 MG tabletIndication s:Essential hypertension Take 1 tablet (25 mg total) by mouth daily. 90 tablet 1 5 Active Active Problems Problem Noted Date Diagnosed Date Osteopenia 12/20/2024 Assessment & Plan (12/20/2024 2:50 PM EDT): Paroxysmal atrial fibrillation 05/03/2024 Overview (08/08/2024): documented on Holter. staretd on eliquis by Dr Mcclelland Assessment & Plan (12/20/2024 2:50 PM EDT): Assessment & Plan (08/09/2024 4:43 PM EDT): She continues to experience intermittent episodes of atrial fibrillation and PACs. She is currently on Eliquis 2.5 mg twice a day and verapamil 240 mg, which has helped manage her symptoms. The benefits of verapamil in suppressing migraines were also discussed. Difficult intubation 05/13/2023 Muscle weakness 11/19/2022 Assessment & Plan (11/19/2022 8:15 AM EDT): Isolated onset of muscle weakness has a broad differential. Neurologic, endocrine , rheum and infectious causes all possible. Serious conditions including ALS invole upper and lower motor neuron Which I think we can rule out in this case. However, other neuologic conditions ( GBS, CMT, SMA) are all remotely possible, though the onset does not follow what she describes. Myasthenia Gravis, Lambert Eaton and certain muscluar dystrophy can present late in life, again though, this seems an odd presentation. Infectious causes ( including lyme) as well as electrolyte causes and fatigue presenting as muscle weakness ( autoimmune conditions, anemia) are much higher on my differential. She has had no med changes and has no new supplements so it seems unlikely that meds are the cause of this and a recnt cardiac work up was normal and reassuring. We discussed all of this and will get labs to rule out the most likely causes. If these are all normal and the symptoms persist, I think we should get her to neurology for further evaluation. Arrhythmia 11/11/2021 Overview (11/11/2021): Initial concern for A. fib not borne out on Holter; f/b Dr Romero @[place] Atrioventricular block 05/23/2021 Assessment & Plan (05/23/2021 8:26 AM EST): Currently asymptomatic AV block, but possible that she has had times of being symptomatic and that these correlate to the times she believed herself to be in AFIB. Reviewed recent ECHO which was essentially normal, which is reassuring. I have no records from yesterdays urgent care visit, so I cannot understand what the thought process was at that visit and what the provider understood to be going on. Of course, check some labs to rule out reversible causes of block, but really, this pt needs to be seen urgently by cardiology, to discuss next steps. I have counseled her regarding when to go to ER: chest pain, shortness of breath, racing heart, syncope, basically anything which is worrisome to her at this point. She understands and agrees Ovarian mass 01/21/2021 Assessment & Plan (01/21/2021 9:17 PM EDT): I explained the echogenic masses in the ovaries today have an overall benign appearance with no increased vascularity and a very stable in appearance compared to previous films. I explained that these could represent old dermoid cyst. There are no features worrisome for malignancy. Therefore, I think it is reasonable to repeat the ultrasound on a yearly basis. History of left hip replacement 10/11/2020 Assessment & Plan (05/15/2022 1:45 PM EST): I am unaware of any change in guidelines around premedication with antibiotics for dental procedures. I cannot find any such changes documented anywhere. I informed Susan that the indications I am aware of are for patients with certain heart valve problems which she does not have and she agrees to call her orthopedist for more information about these guidelines but I am not going to prescribe anything at this time. Assessment & Plan (10/11/2020 9:02 AM EDT): F/u with orthopedist as planned. Currently unable to tolerate PT. Recommend trying OTC topical liniments for pain in the meantime. Angioedema 03/29/2017 Overview (03/29/2017): She reports a previous workup at [facility], angioedema thought to be due to nonsteroidals. Assessment & Plan (06/07/2024 4:50 PM EST): HTN (hypertension) 03/29/2017 Assessment & Plan (06/07/2024 4:50 PM EST): At goal for age and comorbidities without signs or symptoms of end organ damage. Continue current medications. Due for renal monitoring. Orders: Basic metabolic panel; Future Assessment & Plan (10/15/2023 1:51 PM EDT): At goal for age and comorbidities without signs or symptoms of end organ damage (premature contractions are not new for her). Continue current medications. Assessment & Plan (05/15/2022 1:42 PM EST): At goal for age and comorbidities without signs or symptoms of end organ damage. Continue current medications. Assessment & Plan (05/15/2021 10:58 AM EST): At goal without signs or symptoms of end organ damage. Continue current medications. Assessment & Plan (10/11/2020 9:01 AM EDT): At goal without signs or symptoms of end organ damage. Continue current medications. Assessment & Plan (03/29/2017 4:45 PM EST): Check BMP. We reviewed the new guidelines. Lichen sclerosus 03/29/2017 Assessment & Plan (01/11/2025 5:39 PM EDT): The natural history of lichen sclerosis was reviewed with the patient. I explained that in order to obtain maximal benefit from the clobetasol, she needs to be using it much more extensively. I recommended she use it twice daily for the next 2 weeks and then back off to 3 times weekly thereafter. After the initial 2-week treatment with clobetasol, I have also recommended she apply topical Estrace cream to the affected area on the days that she is not using the clobetasol. I examined approximately 6 weeks. Assessment & Plan (12/20/2024 2:50 PM EDT): Recommend using clobetasol twice weekly on a standing basis rather than waiting until he gets really bad since she frequently tells me that she is pretty miserable. This is how the treatment is recommended to be used and should help to keep it in check. Assessment & Plan (08/09/2024 4:43 PM EDT): She reports that cortisone injections have temporarily alleviated her symptoms, but the condition recurs once the effect wears off. She uses clobetasol as needed but tries to minimize its use. The possibility of using topical estrogen was discussed, and we discussed that absorption is minimal and this is considered quite safe. I would not recommend systemic estrogen at her age. Assessment & Plan (12/08/2022 4:30 PM EDT): Patient with lichen sclerosus flar Plan to increase clobetasol to twice daily for 2 weeks and then go down to daily for two weeks afterwards Plan follow up in 2 weeks to assess progress Patient reports they have been biopsied in the past, would consider repeat biopsy if above treatment plan does not result in improvement Assessment & Plan (01/21/2021 9:16 PM EDT): I reviewed the natural history of lichen sclerosis with the patient explained that she can use clobetasol 2-3 times per week in the current fashion that she is using it as long she continues to apply a thin film to the area. In addition, I did review the possible use of Estrace cream with the patient and explained that this may help with some of her LS symptoms alleviate some of the discomfort she is feeling. She is amenable to this plan of action. I recommended that she start with 1 g nightly for 7 days and then twice weekly thereafter. Assessment & Plan (11/15/2020 10:28 AM EDT): Her current symptoms and exam are consistent with a flareup of the LS. The external genitalia do appear inflamed but there are no worrisome lesions noted. I recommend that she increase the clobetasol to twice daily for 2 weeks and then back off to twice a week thereafter. We will plan on reexamining her in 2 months. Assessment & Plan (10/17/2019 2:03 PM EDT): Her LS on exam is stable. We will plan to recheck in 6 months. Obesity, morbid 03/29/2017 Overview (10/15/2023): Max wt 243 lb. Wegovy: Severe constipation, mild depression, ineffective. zepbound: Better tolerated and more effective. Assessment & Plan (12/20/2024 2:50 PM EDT): Has already lost 45 lb which is fantastic. Continuing to lose on 10 mg and we can increase to 12.5 when she plateaus again. It's OK to take a laxative periodically; having a bowel movement every day is not required. Assessment & Plan (08/09/2024 4:43 PM EDT): Her weight has plateaued at 210 pounds, despite a significant loss of 37 pounds. The current dosage of Zepbound 7.5 mg will be increased to 10 mg to potentially facilitate further weight loss. If there are any issues with insurance coverage, she is advised to inform the provider.She experiences constipation as a side effect of Zepbound. She is advised to take senna daily in conjunction with Colace if needed to manage constipation. Assessment & Plan (05/10/2024 8:29 AM EST): Continue on tirzepatide 7.5 mg for now. It's fine to take colace daily to manage side effects. F/u 3 mos; can increase to 10 mg if she plateaus again. Goal <200 lb sounds reasonable to me. Assessment & Plan (01/31/2024 12:54 PM EDT): Has successfully lost >20 lb on Zepbound and is tolerating it well. For now will continue at 5 mg weekly. I asked Susan to check in with me when she has about a week's worth of medication left; if still losing weight at this dose, would continue for another 3 mos, if not, can increase to 7.5 mg. Assessment & Plan (10/15/2023 1:51 PM EDT): So far losing weight as hoped for with tirzepatide. I have never heard of Tylenol causing stomach problems and I think it is much more likely this is the tirzepatide even though she tolerated it without GI upset on her first go around. I have asked her to keep an eye on this and make sure it does not become intolerable. She can increase her dose as planned as long as she feels well enough to do so. Assessment & Plan (05/15/2022 1:43 PM EST): While we did not titrate up to the maximum dose I probably would not recommend starting semaglutide again if it caused problems for her and did not lead to meaningful weight loss. Assessment & Plan (09/28/2017 5:16 PM EDT): She is exercising, walks and treadmill. She watches 4 grandkids. She admits to some dietary indiscretion, carbs Assessment & Plan (03/29/2017 4:46 PM EST): She does exercise, will watch carb intake Resolved Problems Problem Noted Date Diagnosed Date Resolved Date PMB (postmenopausal bleeding) 05/13/2023 12/20/2024 Candidiasis of vulva and vagina 03/16/2023 04/14/2023 Assessment & Plan (03/16/2023 10:47 AM EST): Not to have white thick vaginal discharge with odor. Pt just completed two antibiotics for bronchitis. Vaginal exam: patient unable to do speculum exam due to pain but not vaginal erythema and edema. No discharge appreciated. -diflucan 150mg x 1 dose, script written for 2 doses (may give second dose if no improvement in symptoms after 24 hours) Bronchopneumonia 03/03/2023 04/14/2023 Assessment & Plan (03/03/2023 7:40 PM EDT): Although most likely viral, has not improved over the course of two weeks, has in fact worsened, and now has audible rhonchi. Discussed risks and beneftis of repeat pred course, and for now I advised using steroid inhaler, tessalon perls and repeat course of abx. If not greatly improved by the weekend, repeat CXR, CBC and consider further imaging Postmenopausal bleeding 12/08/202212/2024 Assessment & Plan (12/08/2022 4:23 PM EDT): -Reviewed possible etiologies of postmenopausal bleeding including atrophy, endometrial or endocervical polyp, and premalignancy or malignancy of the endometrium or cervix. -TVUS ordered to evaluate endometrial stripe. If EMS <4mm, endometrial malignancy is less likely. If EMB >/= 4mm, endometrial sampling will be necessary. -Pap not collected as patient unable to tolerate pelvic exam. -If no further workup is indicated, I will call with results. If endometrial sampling is indicated, plan diagnostic hysteroscopy D&C as patient unable to tolerate vaginal exam in office -Counseled that even if no further workup is indicated at this time, she should call with persistent bleeding as further evaluation would be warranted. COVID-19 09/15/2021 11/11/2021 Intertrigo 05/15/2021 04/14/2023 Migraine headache 03/29/2017 11/11/2021 Assessment & Plan (03/29/2017 4:45 PM EST): Much improved. Colon adenoma 03/29/2017 05/10/2024 Overview (03/29/2017): Dx 2015 at [facility], repeat every 5 yrs. PMB (postmenopausal bleeding) 11/11/2021 Encounters Date Type Department Care Team Description 02/07/2025 Refill [facility] [address] [place] [address] Lara Cox MD Medication Refill 01/11/2025 11:20 AM EDT Office Visit [facility] [address] [place] [address] Venkatesh Jain MD Lichen sclerosus (Primary Dx) from Last 3 Months Immunizations Immunization Administration Dates Next Due COVID-19 (Pre-02/22) Moderna Vaccine, mRNA, PF 07/30/2020,07/02/2020 INFLUENZA, SPLIT VIRUS, TRIVALENT PF 02/23/2017, 05/01/2013 INFLUENZA, SPLIT VIRUS, TRIV ALENT W/ PRESERVATIVE IM 02/19/2016,02/16/2014,05/08/2011 Influenza High-Dose Quadriva lent Preservative Free IM 02/11/2023,02/26/2020 Influenza High-Dose Trivalen t Preservative Free IM 01/31/2024,02/07/2019 Influenza Quadrivalent Adjuv anted Preservative Free IM 02/20/2022,02/18/2021 Influenza, Unspecified Formulation 03/14/2018 Pneumococcal conjugate PCV13 06/22/2018 Pneumococcal polysaccharide PPSV23 10/09/2020 Td (adult),2 Lf Tetanus Toxo id, PF, Adsorbed 07/14/2020 Tdap 02/19/2016,2010 Zoster recombinant 06/03/2023,02/11/2023 Family History Medical History Relation Comments Heart disease Brother Kidney disease Brother Aneurysm Father Breast cancer Maternal Aunt Atrial fibrillation Maternal Grandmother Stroke Maternal Grandmother Atrial fibrillation Mother Gallbladder disease Mother Gallbladder removed Heart failure Mother Stroke Mother Ovarian cancer Neg Hx Relation Status Comments Brother (Age 65) of recurr ent E. coli sepsis Father Maternal Aunt Maternal Grandmother Mother Social History Tobacco Use Types Packs/Day Years Used Date Smoking Tobacco: Former Cigarettes 0.3 33 1 978 - 2010 Smokeless Tobacco: Never Tobacco Cessation:Counseling Given: Not Answered Comments:on and off Alcohol Use Standard Drinks/Week Comments Yes 1 (1 standard drink = 0.6 oz pur e alcohol) Per week Child or Family Care Answer Date Record ed Do you have problems with on e of the following making it difficult for you to work, study, or receive health care? No 12/18/2024 Education Answer Date Recorded Are you interested in more education? Not on alonso e 11/17/2023 Are you concerned about learning? Not on file 11/17/2023 No 11/17/2023 No 11/17/2023 Food Answer Date Recorded Within the past 6 months we worried whether our food would run out before we got money to buy more. Never True 12/18/2024 Within the past 6 months the food we bought just didn't last and we didn't have enough money to get more. Never True Residential Stability Answer Date Recor ded What is your housing situation today? I have marbella sing 12/18/2024 How many times have you move d in the past 12 months? Zero (I did not move) 12/18/2024 Paying for Meds Answer Date Recorded Do you have trouble paying for medicines? No 12/18/2024 Paying Utility Bills Answer Date Record ed Do you have trouble paying your heating or elect ricity bill? No 12/18/2024 Transportation Answer Date Recorded Has the lack of transportati on kept you from medical appointments or from getting medications? No 12/18/2024 Unemployment Answer Date Recorded Are you currently unemployed or working on a part-time or temporary basis, and looking for work? No 11/10/2021 Digital Access Answer Date Recorded No 12/18/2024 Yes 12/18/2024 Do you have reliable internet access at home? Ye s 12/18/2024 Do you have a device (e.g., phone, tablet, computer) with a working camera? Yes 12/18/2024 Intimate Partner Violence Answer Date R ecorded Are you denied basic needs s uch as food, clothing, or medical care? No 12/18/2024 In the past 12 months have y ou been in a relationship with a person who hurts, threatens, or tries to control you? No 12/18/2024 Are you denied basic needs s uch as food, clothing, or medical care? No 12/18/2024 In the past 12 months have y ou been in a relationship with a person who hurts, threatens, or tries to control you? No 12/18/2024 Comments No Sex and Gender Information Value Date Recorded Sex Assigned at Not on file Legal Sex Female 10:36 PM EDT Gender Identity Female 01/17/2022 9:21 AM EDT Sexual Orientation Not on file Last Filed Vital Signs Vital Sign Reading Time Taken Comments Blood Pressure 126/78 01/11/2025 11:23 AM EDT Pulse 67 12/19/2024 9:06 AM EDT Temperature 36.2 C (97.2 F) 05/13/2023 4:55 PM EST Respiratory Rate 16 05/13/2023 4:55 PM EST Oxygen Saturation 96% 12/19/2024 9:06 AM EDT Inhaled Oxygen Concentration - - Weight 88.9 kg (196 lb) 01/11/2025 11:23 AM EDT Height 156.2 cm (5' 1.5 ) 06/07/2024 8:31 AM EST Body Mass Index 36.43 06/07/2024 8:31 AM EST Plan of Treatment Upcoming Encounters Date Type Department Care Team (Late st Contact Info) Description 06/13/2025 9:20 AM EST Office Visit [facility] [address] [facility] [address] [place] [phone] Lara Cox MD [address] [place] [phone] [email or web address] 03/08/2026 10:00 AM EST Office Visit [facility] [address] [place] [id number] Lara Cox MD [address] [place] [phone] [email or web address] Health Maintenance Due Date Last Done Comments COLOGUARD 1997 COLONOSCOPY 1997 COLORECTAL CANCER SCREENING 1997 FIT TEST 1997 FOBT 1997 SIGMOIDOSCOPY 1997 VIRTUAL COLONOSCOPY 1997 RSV VACCINE (1 - Risk 50-74 years 1-dose series) 2002 INFLUENZA VACCINE (#1) 2024 , 02/11/2023, 02/11/2023, Additional history exists COVID-19 VACCINE ( season) 2025 03/03/2021, 07/30/2020, 07/02/2020 CREATININE LEVEL 06/07/2025 06/07/2024, , 11/13/2022, Additional history exists POTASSIUM LEVEL 06/07/2025 06/07/2024, 10/31, 05/22/2021, Additional history exists BLOOD PRESSURE 07/11/2025 01/11/2025 DEPRESSION SCREENING 12/18/2025 12/18/2024 MAMMOGRAM 03/07/2026 03/07/2024, 12/02, 12/19/2018, Additional history exists LIPID PANEL 11/14/2027 11/13/2022, 10/31, 04/30/2017 SMOKING STATUS SCREENING (Every 5 Years) 01/11/2030 01/11/2025 Adult Td,Tdap Booster 07/14/2030 07/14/2020 , 02/19/2016, 2010 HEPATITIS C SCREENING Completed 08/13/2020, 021 PNEUMOCOCCAL VACCINES (50+ years) Completed 10/09/2020, 06/22/2018 OSTEOPOROSIS SCREENING INITIAL (ONE-TIME) Completed 01/16/2022, 01/16/2022, 01/16/2022 ZOSTER VACCINES Completed 06/03/2023, 02/11/2023 HEPATITIS A VACCINES Aged Out No long er eligible based on patient's age to complete this topic HIB VACCINES Aged Out No longer eligi ble based on patient's age to complete this topic MENINGOCOCCAL VACCINES (ACWY) Aged Out No longer eligible based on patient's age to complete this topic MENINGOCOCCAL VACCINES (B) Aged Out N o longer eligible based on patient's age to complete this topic Medical Devices Implanted Type Area Mandate Retail Service Merchandiser Device Identifier Shelf Expiration Date Model / Serial / Lot Prosthetic Joint Prosthetic Joint Left: Hip Procedures Procedure Name Priority Date/Time Associated Diagnosis Comments BASIC METABOLIC PANEL (BMP) Routine 06/07/2024 9:21 AM EST Primary hypertension MAMMOGRAPHY Routine 03/07/2024 2:40 PM EST LIPID PANEL Routine 11/13/2022 11:45 AM EDT Muscle weakness Mixed hyperlipidemia DEXA SCAN Routine 01/16/2022 9:18 AM EDT HEPATITIS C ANTIBODY, QUALITATIVE Routine 08/13/2020 3:21 PM EDT Essential hypertension from Last 3 Months or Most Recently Relevant to Health Maintenance Results * Basic metabolic panel (06/07/2024 9:21 AM EST) SODIUM 142 133 - 146 mmol/L [facility] CHLORIDE 104 96 - 108 mmol/L [facility] POTASSIUM 3.5 3.3 - 5.1 mmol/L [facility] CO2 27 21 - 35 mmol/L [facility] BUN 18 6 - 19 mg/dL [facility] CREATININE 0.80 0.5 - 1.5 mg/dL [facility] GLUCOSE 85 70 - 99 mg/dL [facility] CALCIUM 9.6 8.4 - 10.3 mg/dL [facility] EGFR 79 >59 mL/min/1.7 3m2 [facility] Comment:Estimated glomerular filtration rate calculated using the CKD-EPI refit equation. ANION GAP 15 10 - 20 mmol/L [facility] Blood 06/07/2024 9:21 AM EST 06/07/2024 9:29 AM EST Lara Cox MD LAB BLOOD BKR ORDERABLES Fin al Result [address] [id number] * HM MAMMOGRAPHY FOR RESULT ENTRY ONLY (03/07/2024 2:40 PM EST) Historical Provider HEALTH MAINTENANCE Edited Result - Final * (ABNORMAL) Lipid panel (11/13/2022 11:45 AM EDT) HDL 35 mg/dL [facility] Comment: Interpretation <40 mg/dL: Low HDL cholesterol (major risk factor for CHD) Greater than or equal to 60 mg/dL: High HDL cholesterol ( negative risk factor for CHD) HDL - cholesterol is affected by a number of factors, e.g. smoking, excerise, hormones, sex and age. CHOLESTEROL 171 0 - 240 mg/dL [facility] TRIGLYCERIDES 122 30 - 160 mg/dL [facility] LDL 112 50 - 129 mg/dL [facility] Comment: LDL levels in terms of risk for coronary heart disease: <100 mg/dL: Optimal 100-129 mg/dL: Near or above optimal 130-159 mg/dL: Borderline high 160-189 mg/dL: High >190 mg/dL: Very High CARDIAC RISK RATIO 4.9(H) 3.3 - 4.4 C [facility] Blood 11/13/2022 11:4 5 AM EDT 11/13/2022 12:00 PM EDT us Evelyn Collins MD LAB BLOOD BKR ORDERABLES Final R esult Performing Organization Address [facility]/ZIP Co de Phone Number [address] [address] * HM DEXA SCAN (01/16/2022 9:18 AM EDT) us Historical Provider HEALTH MAINTENANCE Edited Result - Final * Hepatitis C antibody, qualitative (08/13/2020 3:21 PM EDT) HCV NON-REACTIV E NON-REACTI VE [facility] Blood 08/13/2020 3:21 PM EDT 08/13/2020 3:23 PM EDT us Jessy Johnson DO LAB BLOOD BKR ORDERABLES F inal Result Performing Organization Address City/[facility] Co de Phone Number [address] [address] from Last 3 Months or Most Recently Relevant to Health Maintenance Insurance MEDICARE PART A & B [facility] MEDICARE SUPPLEMENT MEDICARE PART A & B [employer] EX[employer]ION MEDICARE SUPPLEMENT MEDICARE PART A & B [employer] EXTENSION MEDICARE SUPPLEMENT MEDICARE PART A & B [employer] EXT[employer]ION MEDICARE SUPPLEMENT MEDICARE PART A & B [employer] MEDICARE SUPPLEMENT MEDICARE PART A & B [employer] MEDICARE SUPPLEMENT MEDICARE PART A & B [facility] MEDICARE SUPPLEMENT MEDICARE PART A & B [employer] MEDICARE SUPPLEMENT MEDICARE PART A & B [employer] EX[employer]ION MEDICARE SUPPLEMENT Advance Directives For more information, please contact: [phone] (9AM - 5PM [facility], Wednesday-Wednesday) Documents on File Type Date Recorded Patient Storage Engineer Expl anation Healthcare Proxy 05/14/2023 5:14 PM MOLST 04/14/2023 Molst * Full Code (Latest Code Status on File) Date Activated Date Inactivated Comments 05/13/2023 12:08 PM Question Answer Comments Code Status Confirmed With: Patient * Full Code (Presumed) Date Activated Date Inactivated Comments 11/10/2019 10:29 AM 05/13/2023 12:08 PM Care Teams Special Education Supervisor Relationship Specialty Start Date End Date Lara Cox MD [address] [address] PCP - General Family Medicine 09/06/20 Lara Cox MD [address] [address] Insurance Assigned Provider 08/07/23 Additional Source Comments The information contained in this document represents components of the legal health record. It is not the complete legal health record.[facility]
--- OUTSIDE RECORDS SUMMARY | 2025-03-23 08:14 | XMS_ITS | Patient Health Record ---
Author Organization [facility] Address [address] [place] [address] Support Name Relationship Address Phone RANJAN DASILVA Guarantor Unknown [phone] Reason For Referral No Information Medications Medication SIG (Take, Route, Frequency, Duration) Notes Start Date End Date Status Clobetasol Prop Crea-[place] Tar Vaginal tw ice daily; Duration: -3 Mannie-MJ 03/31/2011 Active hydroCHLOROthiazide 20MG 1 ORAL daily; Duration: -3 Mannie-MJ 03/31/2011 Active Problems Problem Type SNOMED Code ICD Code Onset Dates Problem Status W/U Status Risk Notes Problem Candidal vulvovaginitis (18743024) Candidiasis of vulva and vagina (112.1) Active confirmed Other Problem Essential hypertension (34770732) Unspecified essential hypertension (401.9) Active confirmed Major Problem Vulvovaginitis (disorder) (82795424) Vaginitis and vulvovaginitis (616.1) Active confirmed Other Plan Of Treatment No Information Insurance Providers Payer Name Payer Address Payer Phone Subscriber Number Group Number Insured Name Patient Relationship to Insured Coverage Start Date Coverage End Date BCBS MEDICARE PPO [address] [place] [address] [phone] [id number] RANJAN DASILVA Self - patient is the insured
--- OUTSIDE RECORDS SUMMARY | 2025-03-23 08:14 | XMS_ITS | Encounter Summary ---
Author Organization [facility] Address [address] [place] [address] Phone Care Team Providers Care Credit Collection Associate Name Role Phone Jessy Johnson Sulma DO Unavailable [phone] Lara Cox MD Primary Care Provider [phone] Lara Cox MD Unavailable [phone] Encounter Details Date Type Department Care Team (Late st Contact Info) Description 11/15/2020 Procedure Pass [facility] [address] [place] [address] Social History Tobacco Use Types Packs/Day Years Used Date Smoking Tobacco: Former Cigarettes 0.3 15 1 2010 Smokeless Tobacco: Never Comments:on and off Alcohol Use Standard Drinks/Week Comments Yes 1 (1 standard drink = 0.6 oz pur e alcohol) weekends Child or Family Care Answer Date Record ed Do you have problems with on e of the following making it difficult for you to work, study, or receive health care? No 10/09/2020 Education Answer Date Recorded Are you interested in help w ith more adult education (for example, completing high school, GED, job training, learning the Iranian language, technical skills, or developing parenting skills)? No 10/09/2020 Food Answer Date Recorded Within the past 6 months we worried whether our food would run out before we got money to buy more. Never True 10/09/2020 Within the past 6 months the food we bought just didn't last and we didn't have enough money to get more. Never True Paying for Meds Answer Date Recorded Do you have trouble paying for medicines? No 10/09/2020 Paying Utility Bills Answer Date Record ed Do you have trouble paying your heating or elect ricity bill? No 10/09/2020 Transportation Answer Date Recorded Has the lack of transportati on kept you from medical appointments or from getting medications? No 10/09/2020 Comments No Sex and Gender Information Value Date Recorded Sex Assigned at Not on file Legal Sex Female 10:36 PM EDT Gender Identity Female 01/17/2022 9:21 AM EDT Sexual Orientation Not on file documented as of this encounter Plan of Treatment Upcoming Encounters Date Type Department Care Team (Late st Contact Info) Description 06/13/2025 9:20 AM EST Office Visit [facility] Primary Care [address] [facility] [address] [place] [address] Lara Cox MD [address] [place] [address] 03/08/2026 10:00 AM EST Office Visit [facility] Primary Care [address] [place] [address] Lara Cox MD [address] [place] [address] documented as of this encounter Visit Diagnoses Not on filedocumented in this encounter Additional Health Concerns Infection Onset Date Last Indicated Resolved Time CoV-Presumed 09/11/2021 09/11/2021 10/02/2021 1:22 AM EDT Assessment Noted Time PHQ-2 Depression Total Score: 0 10/10/19 21 7:49 AM EDT documented as of this encounter Care Teams Credit Collection Associate Relationship Specialty Start Date End Date Lara Cox MD [address] [place] [address] PCP - General Family Medicine 09/06/20 Jessy Johnson DO [address] [place] [address] [email or web address] Insurance Assigned Provider 08/09/19 08/09/21 Lara Cox MD [address] [place] [address] [email or web address] Insurance Assigned Provider 08/07/23 documented as of this encounter Additional Source Comments The information contained in this document represents components of the legal health record. It is not the complete legal health record.[facility]
== END 2025-03-23 08:12 | disposition home or self-care (01) ==
LOC: HO.MAMMO 08:11
PROVIDERS: PCP Family Medicine; Visit Provider Family Medicine
DX: Z12.31 Encounter for screening mammogram for malignant neoplasm of breast (principal)
CPT/HCPCS: 77063; 77067

== ENCOUNTER → 2025-03-23 08:30 | Outpatient (BNV) | payer MEDICARE, OTHER, SELFPAY | PROVIDERS: PCP Family Medicine; Visit Provider Internal Medicine | DX: Z12.31 Encounter for screening mammogram for malignant neoplasm of breast (principal) | CPT/HCPCS: 77063; 77067 ==

== ENCOUNTER 2025-04-18 09:40 | Outpatient (REF) | payer MEDICARE, OTHER, SELFPAY ==
--- NOTE | ~2025-04-18 | US_ITS ---
EXAMINATION(S): 1. MM DIAGNOSTIC DIGITAL BREAST TOMOSYNTHESIS, RIGHT 2. TARGETED ULTRASOUND OF THE RIGHT BREAST CLINICAL INFORMATION: Callback from screening for right breast asymmetry in the lateral breast anterior depth on the CC view COMPARISON: Comparison made to multiple prior, most recent March 23, 2025, and most remote of December 21, 2019. TECHNIQUE: Digital breast tomosynthesis is performed in full field ML 90 degrees along with computer-aided detection (CAD). Synthesized 2D images are generated from the tomosynthesis. Spot compression tomosynthesis were obtained. FINDINGS: BREAST COMPOSITION: There are scattered areas of fibroglandular density. RIGHT BREAST: Previously suggested asymmetry in the lateral breast on the CC view is pliable with spot compression. Its probable correlate on the ML 90 degrees/MLO is tentatively identified in the upper breast. Targeted ultrasound of the right breast was performed at the location of the mammographic finding. The survey throughout the upper outer quadrant did not reveal suspicious sonographic correlate. US/US Breast RT Limited Mamm Only IMPRESSION: RIGHT BREAST: Asymmetry in the lateral breast on CC view, with probable correlate in the upper breast on the MLO/ML 90 degrees. No suspicious sonographic correlate. Probably benign. A 6-month follow-up mammogram is recommended. ASSESSMENT: BI-RADS: Category 3: Probably benign RECOMMENDATION: 6 Month F/U Results were provided to the patient at time of visit by the technologist. Electronically signed by: Joe Downey MD 04/18/2025 12:27 PM [facility] [place]
--- OUTSIDE RECORDS SUMMARY | 2025-04-18 11:14 | XMS_ITS | Encounter Summary ---
Author Organization [facility] Address [address] [address] Phone Care Team Providers Care Personal Care Assistant Name Role Phone Lara Cox MD Primary Care Provider + [phone] Lara Cox MD Unavailable [phone] Encounter Details Date Type Department Care Team (Late st Contact Info) Description 03/27/2025 Orders Only [facility] Primary Care Clinic [address] [place] [address] Provider, MD Mary Ann [address] [place] [address] Social History Tobacco Use Types Packs/Day Years Used Date Smoking Tobacco: Former Cigarettes 0.3 33 1 978 - 2010 Smokeless Tobacco: Never Comments:on and [...] housing situation today? I have marbella ibarra 12/18/2024 How many times have you move [...] Description 06/13/2025 9:20 AM EST Office Visit [facility] Primary Care Clinic [address] [facility] [address] [place] [address] Lara Cox MD [address] [facility] [address] [place] [address] 03/08/2026 10:00 AM EST Office Visit [facility] Primary Care Clinic [address] [facility] [address] [place] [address] Lara Cox MD 15 [facility] [address] [place] [address] documented as of this encounter Procedures Procedure Name Priority Date/Time Associated Diagnosis Comments HM MAMMOGRAPHY Routine 03/23/2025 9:45 AM EST documented in this encounter Results * HM MAMMOGRAPHY FOR RESULT ENTRY ONLY (03/23/2025 9:45 AM EST) us Historical Provider HEALTH MAINTENANCE Edited Result - Final documented in this encounter Visit Diagnoses Not on filedocumented in this encounter Additional Health Concerns Assessment Noted Time PHQ-2 Depression Total Score: 0 12/19/19 25 1:08 PM EDT documented as of this encounter Care Teams Personal Care Assistant Relationship Specialty Start Date End Date Lara Cox MD [address] [address] PCP - General Family Medicine 09/06/20 Lara Cox MD [address] [address] Insurance Assigned Provider 08/07/23 documented as of this encounter Additional Source Comments The information contained in this document represents components of the legal health record. It is not the complete legal health record.[facility]
--- OUTSIDE RECORDS SUMMARY | 2025-04-18 11:15 | XMS_ITS | Encounter Summary ---
Author Organization [facility] Address [address] [facility] [address] [place] [address] Phone Care Team Providers Care Dross Puller Name Role Phone Jessy Johnson DO Primary Care Provider + [phone] Jessy Johnson DO Unavailable [phone] Lara Cox MD Primary Care Provider [phone] Lara Cox MD Unavailable [phone] Encounter Details Date Type Department Care Team (Late Contact Info) Description 11/10/2019 Procedure Pass [place] Admitting Dept - Virtual Department [address] [place] [address] Social History Tobacco Use Types Packs/Day Years [...] Description 06/13/2025 9:20 AM EST Office Visit [facility] Primary Care Clinic [address] [facility] [address] [place] [address] Lara Cox MD 15 [facility] [address] [place] [address] 03/08/2026 10:00 AM EST Office Visit [facility] Primary Care Clinic 15 [facility] [address] [place] [address] Lraa Cox MD 15 [facility] [place] [address] documented as of this encounter Visit Diagnoses [...] documented as of this encounter Care Teams Dross Puller Relationship Specialty Start Date End Date Jessy Johnson DO [address] [place] [address] [email or web address] PCP - General Family Medicine 06/07/18 09/05/20 Lara Cox MD [address] [address] [email or web address] PCP - General Family Medicine 09/06/20 Jessy Johnson DO [address] [place] [address] [email or web address] Insurance Assigned Provider 08/09/19 08/09/21 Lara Cox MD [address] [address] [email or web address] Insurance Assigned Provider 08/07/23 documented as of this encounter Additional Source Comments The information contained in this document represents components of the legal health record. It is not the complete legal health record.[facility]
--- OUTSIDE RECORDS SUMMARY | 2025-04-18 11:15 | XMS_ITS | Encounter Summary ---
Author Organization [facility] Address [address] [place] [address] Phone Care Team Providers Care Sales Ambassador Name Role Phone Lara Cox MD Primary Care Provider + [phone] Lara Cox MD Unavailable [phone] Encounter Details Date Type Department Care Team (Late st Contact Info) Description 05/13/2023 Procedure Pass OR Admitting Dept - Virtual Department [address] [place] [address] Social History Tobacco Use Types Packs/Day Years [...] high school, GED, job training, learning the Ivorian language, technical skills, or developing parenting skills)? [...] Description 06/13/2025 9:20 AM EST Office Visit [facility] Primary Care Clinic [address] [facility] [address] [place] [address] Lara Cox MD [address] [place] [address] [address] [place] [address] 03/08/2026 10:00 AM EST Office Visit [facility] Primary Care Clinic 15 [facility] [address] [place] [address] Lara Cox MD 15 [facility] [address] [place] [address] documented as of this encounter Visit Diagnoses Not on filedocumented in this encounter Additional Health Concerns Assessment Noted Time PHQ-2 Depression Total Score: 0 04/14/20 10:04 AM EST documented as of this encounter Care Teams Sales Ambassador Relationship Specialty Start Date End Date Lara Cox MD 15 [facility] [address] [place] [address] PCP - General Family Medicine 09/06/20 Lara Cox MD 15 [facility] [address] [place] [address] Insurance Assigned Provider 08/07/23 documented as of this encounter Additional Source Comments The information contained in this document represents components of the legal health record. It is not the complete legal health record.[facility]
--- OUTSIDE RECORDS SUMMARY | 2025-04-18 11:15 | XMS_ITS | Patient Health Record ---
Author Organization [facility] Address [address] [facility] [address] [place] [address] Support Name Relationship Address Phone RANJAN DASILVA Guarantor Unknown Reason For Referral No Information Medications Medication SIG (Take, Route, Frequency, Duration) Notes Start Date End Date Status Clobetasol Prop Crea-[place] Tar Vaginal tw ice daily; Duration: -3 Mannie-MJ 03/31/2011 Active hydroCHLOROthiazide 20MG 1 ORAL daily; Duration: -3 Mannie-MJ 03/31/2011 Active Problems Problem Type SNOMED Code ICD Code Onset Dates Problem Status W/U Status Risk Notes Problem Candidal vulvovaginitis (07545158) Candidiasis of vulva and vagina (112.1) Active confirmed Other Problem Essential hypertension (87443924) Unspecified essential hypertension (401.9) Active confirmed Major Problem Vulvovaginitis (disorder) (77062246) Vaginitis and vulvovaginitis (616.1) Active confirmed Other Plan Of Treatment No Information Insurance Providers Payer Name Payer Address Payer Phone Subscriber Number Group Number Insured Name Patient Relationship to Insured Coverage Start Date Coverage End Date BCBS MEDICARE PPO [address] [place] [address] [phone] [id number] RANJAN DASILVA Self - patient is the insured
--- OUTSIDE RECORDS SUMMARY | 2025-04-18 11:15 | XMS_ITS | Clinical Summary ---
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 [...] 03/29/2017 05/10/2024 Overview (03/29/2017): Dx 2015 at [facility], repeat every 5 yrs. PMB (postmenopausal bleeding) 11/11/2021 Encounters Date Type Department Care Team Description 04/03/2025 Telephone [facility] [address] [facility] [address] [place] [address] Lara Cox MD Request For Order(s) (Mammogram orders) 03/27/2025 Orders Only [facility] [address] [place] [address] Provider, MD Mary Ann 02/07/2025 Refill [facility] [address] [facility] [address] [place] [address] Lara Cox MD Medication Refill from Last 3 Months Immunizations Immunization Administration [...] is your housing situation today? I have mareblla sing 12/18/2024 How many times have you [...] Description 06/13/2025 9:20 AM EST Office Visit [facility] Clinic [address] [facility] [address] [place] [address] Lara Cox MD [address] [place] [address] 03/08/2026 10:00 AM EST Office Visit [facility] [address] [facility] [address] [place] [address] Lara Cox MD [address] [place] [address] Health Maintenance Due Date Last Done Comments COLOGUARD 1997 COLONOSCOPY 1997 COLORECTAL CANCER SCREENING 1997 FIT TEST 1997 FOBT 1997 SIGMOIDOSCOPY 1997 VIRTUAL COLONOSCOPY 1997 RSV VACCINE (1 - Risk 50-74 years 1-dose series) 2002 INFLUENZA VACCINE (#1) 2024 4, 02/11/2023, 02/11/2023, Additional history exists COVID-19 VACCINE ( season) 2025 03/03/2021, 07/30/2020, 07/02/2020 CREATININE LEVEL 06/07/2025 06/07/2024, , 11/13/2022, Additional history exists POTASSIUM LEVEL 06/07/2025 06/07/2024, 10/31, 05/22/2021, Additional history exists BLOOD PRESSURE 07/11/2025 01/11/2025 DEPRESSION SCREENING 12/18/2025 12/18/2024 MAMMOGRAM 03/23/2027 03/23/2025, 1109/2023, 12/21/2019, Additional history exists LIPID PANEL 11/14/2027 11/13/2022, [...] this topic Medical Devices Implanted Type Area Kinder Teacher Device Identifier Shelf Expiration Date Model / Serial / Lot Prosthetic Joint Prosthetic Joint Left: Hip Procedures Procedure Name Priority Date/Time Associated Diagnosis Comments BI MAMMOGRAM DIAGNOSTIC (RIGHT) Routine 04/03/2025 11:09 AM EST Abnormal finding on breast imaging BI US BREAST (RIGHT) Routine 04/03/2025 11:09 AM EST Abnormal finding on breast imaging HM MAMMOGRAPHY Routine 03/23/2025 9:45 AM EST BASIC METABOLIC PANEL (BMP) Routine 06/07/2024 9:21 AM EST Primary hypertension LIPID PANEL Routine 11/13/2022 11:45 AM EDT Muscle weakness Mixed hyperlipidemia HM DEXA SCAN Routine 01/16/2022 9:18 AM EDT HEPATITIS C ANTIBODY, QUALITATIVE Routine 08/13/2020 3:21 PM EDT Essential hypertension from Last 3 Months or Most Recently Relevant to Health Maintenance Results * MAMMOGRAPHY FOR RESULT ENTRY ONLY (03/23/2025 9:45 AM EST) us Historical Provider HEALTH MAINTENANCE Edited Result - Final * Basic metabolic panel (06/07/2024 9:21 AM EST) SODIUM 142 133 - 146 mmol/L [facility] CHLORIDE 104 96 - 108 mmol/L [facility] POTASSIUM 3.5 3.3 - 5.1 mmol/L [facility] CO2 27 21 - 35 mmol/L [facility] BUN 18 6 - 19 mg/dL [facility] CREATININE 0.80 0.5 - 1.5 mg/dL [facility] GLUCOSE 85 70 - 99 mg/dL [facility] CALCIUM 9.6 8.4 - 10.3 mg/dL [facility] EGFR 79 >59 mL/min/1.7 3m2 [facility] Comment:Estimated glomerular filtration rate calculated using the CKD-EPI refit equation. ANION GAP 15 10 - 20 mmol/L [facility] Blood 06/07/2024 9:21 AM EST 06/07/2024 9:29 AM EST Lara Cox MD LAB BLOOD BKR ORDERABLES Fin al Result [address] [address] * (ABNORMAL) Lipid panel (11/13/2022 11:45 AM EDT) HDL 35 mg/dL [facility] Comment: Interpretation <40 mg/dL: Low HDL cholesterol (major risk factor for CHD) Greater than or equal to 60 mg/dL: High HDL cholesterol ( negative risk factor for CHD) HDL - cholesterol is affected by a number of factors, e.g. smoking, excerise, hormones, sex and age. CHOLESTEROL 171 0 - 240 mg/dL [facility] TRIGLYCERIDES 122 30 - 160 mg/dL [facility] LDL 112 50 - 129 mg/dL [facility] Comment: LDL levels in terms of risk for coronary heart disease: <100 mg/dL: Optimal 100-129 mg/dL: Near or above optimal 130-159 mg/dL: Borderline high 160-189 mg/dL: High >190 mg/dL: Very High CARDIAC RISK RATIO 4.9(H) 3.3 - 4.4 C [facility] Blood 11/13/2022 11:4 5 AM EDT 11/13/2022 12:00 PM EDT Evelyn Collins MD LAB BLOOD BKR ORDERABLES Final R esult Performing Organization Address [facility] Co de Phone Number [address] [address] * DEXA SCAN (01/16/2022 9:18 AM EDT) Historical Provider HEALTH MAINTENANCE Edited Result - Final * Hepatitis C antibody, qualitative (08/13/2020 3:21 PM EDT) HCV NON-REACTIV E NON-REACTI VE [facility] Blood 08/13/2020 3:21 PM EDT 08/13/2020 3:23 PM EDT Jessy Johnson DO LAB BLOOD BKR ORDERABLES F inal Result Performing Organization Address [facility] Co de Phone Number [address] [address] from Last 3 Months or Most Recently Relevant to Health Maintenance Insurance MEDICARE PART A & B [employer] MEDICARE SUPPLEMENT MEDICARE PART A & B [employer] MEDICARE SUPPLEMENT MEDICARE PART A & B [employer] MEDICARE SUPPLEMENT MEDICARE PART A & B [employer] MEDICARE SUPPLEMENT MEDICARE PART A & B [facility] EXTENSION MEDICARE SUPPLEMENT MEDICARE PART A & B [facility] EXTENSION MEDICARE SUPPLEMENT MEDICARE PART A & B MEDICARE SUPPLEMENT MEDICARE PART A & B [employer] MEDICARE SUPPLEMENT MEDICARE PART A & B [employer] MEDICARE SUPPLEMENT [employer] [place] [phone] Advance Directives For more information, please contact: [phone] (9AM - 5PM [facility], Wednesday-Wednesday) Documents on File Type Date Recorded Patient Systems Support Officer Expl anation Healthcare Proxy 05/14/2023 5:14 PM MOLST 04/14/2023 Molst * Full Code (Latest Code Status on File) Date Activated Date Inactivated Comments 05/13/2023 12:08 PM Question Answer Comments Code Status Confirmed With: Patient * Full Code (Presumed) Date Activated Date Inactivated Comments 11/10/2019 10:29 AM 05/13/2023 12:08 PM Care Teams Strategic Account Manager Relationship Specialty Start Date End Date Lara Cox MD [address] [address] [email or web address] PCP - General Family Medicine 09/06/20 Lara Cox MD [address] [address] Insurance Assigned Provider 08/07/23 Additional Source Comments The information contained in this document represents components of the legal health record. It is not the complete legal health record.[facility]
--- OUTSIDE RECORDS SUMMARY | 2025-04-18 11:15 | XMS_ITS | Encounter Summary ---
Author Organization [facility] Address [address] [place] [id number] Phone Care Team Providers Care Superintendent Of Schools Name Role Phone Jessy Johnosn Sulma DO Unavailable [phone] Lara Cox MD Primary Care Provider [phone] Lara Cox MD Unavailable [phone] Encounter Details Date Type Department Care Team (Late st Contact Info) Description 11/15/2020 Procedure [facility] [address] [place] [address] Social History Tobacco Use Types Packs/Day Years [...] high school, GED, job training, learning the Montenegr[place] language, technical skills, or developing parenting skills)? [...] Upcoming Encounters Date Type Department Care Team ([facility] st Contact Info) Description 06/13/2025 9:20 AM EST Office Visit [facility] [address] [facility] [address] [place] [id number] Lara Cox MD [address] [place] [phone] 03/08/2026 10:00 AM EST Office Visit [facility] [address] [place] [address] Lara Cox MD [address] [place] [phone] documented as of this encounter Visit Diagnoses Not on filedocumented in this encounter Additional Health Concerns Infection Onset Date Last Indicated Resolved Time CoV-Presumed 09/11/2021 09/11/2021 10/02/2021 1:22 AM EDT Assessment Noted Time PHQ-2 Depression Total Score: 0 10/10/19 21 7:49 AM EDT documented as of this encounter Care Teams Superintendent Of Schools Relationship Specialty Start Date End Date Lara Cox MD [address] [place] [phone] PCP - General Family Medicine 09/06/20 Jessy Johnson DO [address] [place] [address] [email or web address] Assigned Provider 08/09/19 08/09/21 Lara Cox MD [address] [place] [phone] [email or web address] Insurance Assigned Provider 08/07/23 documented as of this encounter Additional Source Comments The information contained in this document represents components of the legal health record. It is not the complete legal health record.[facility]
== END 2025-04-18 09:41 | disposition home or self-care (01) ==
LOC: HO.MAMMO 09:40
PROVIDERS: PCP Family Medicine; Visit Provider Family Medicine
DX: R92.8 Other abnormal and inconclusive findings on diagnostic imaging of breast (principal); N64.89 Other specified disorders of breast
CPT/HCPCS: 76642; 77061; 77065

== ENCOUNTER → 2025-04-18 10:00 | Outpatient (BNV) | payer MEDICARE, OTHER, SELFPAY | PROVIDERS: PCP Family Medicine; Visit Provider Radiology Body Imaging | DX: R92.8 Other abnormal and inconclusive findings on diagnostic imaging of breast (principal) | CPT/HCPCS: 76642; 77065; G0279 ==

== ENCOUNTER 2025-04-20 02:12 | Emergency (ER) | payer MEDICARE, OTHER, SELFPAY ==
--- NOTE | 2025-04-20 | ECG_ITS ---
Test Reason : DIZZINNESS Blood Pressure : */* mmHG Vent. Rate : 103 BPM Atrial Rate : 103 BPM P-R Int : * ms QRS Dur : 76 ms QT Int : 352 ms P-R-T Axes : * -15 -1 degrees QTcB Int : 461 ms Sinus tachycardia with PACs Nonspecific ST abnormality Abnormal ECG When compared with ECG of 28-Feb-2023 06:33, PACs present Referred By: Jessica Paula Electronically Signed By: Regis Zavaleta
--- NOTE | ~2025-04-20 | XR_ITS ---
CLINICAL HISTORY: sob 1 view chest x-ray. Comparison: CR/SR - XR CHEST 2 VIEWS - 02/28/23 08:40 EDT Findings: No consolidation, pneumothorax, or effusion. Mild interstitial prominence identified within the lungs. Heart size normal. Impression: 1. Mild nonspecific interstitial prominence identified within the lungs, which may be seen with scattered atypical/viral infiltrates, mild pulmonary interstitial edema, or chronic lung changes/scarring. No focal pulmonary consolidation. This document has been electronically signed by: Orion Santos MD on 04/20/2025 03:57:47
[2025-04-20 02:27] VITALS: BP 101/66; BP 110/62; PULSE 76; PULSE 93; RESP 14; TEMP 36.7; O2SAT 89; O2SAT 97; BMI 37.1
--- NOTE | 2025-04-20 02:32 | ED_ITS ---
HPI - General Adult General Chief complaint: Dizziness Stated complaint: DIZZINESS Time Seen by Provider: 04/20/25 02:28 Source: patient and family Mode of arrival: ambulatory Limitations: no limitations History of Present Illness ED Provider: Dr. Jessica Paula HPI narrative: patient comes to the emergency room complaining of palpitations, dizziness, states that when she has a palpitations she feels like she is about to faint but did not actually pass out. Patient denies any chest pain or chest pressure. Patient states that she is currently taking Eliquis twice a day. States she is compliant with the medications. 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 Seems that she has had some EKGs reporting PVCs versus AFib but the diagnosis of AFib was never actually diagnosed. Also, patient reporting sinus pressure and discomfort, URI symptoms. Denies any lower extremity edema or pain Related Data Home Medications ?Medication ?Instructions ?Recorded ?Confirmed epinephrine 0.3 mg/0.3 mL IM 05/21/21 06/08/24 injection, auto-injector hydrochlorothiazide 25 mg tablet 25 mg PO DAILY 06/08/24 hydroxyzine HCl 25 mg tablet 25 mg PO DAILY 05/21/21 0 06/08/24 prednisone 20 mg tablet 40 mg PO DAILY PRN 06/07/23 06/08/24 Previous Rx's ?Medication ?Instructions ?Recorded albuterol sulfate 90 mcg/actuation 2 inh inhalation QI D PRN shortness 09/10/21 aerosol inhaler of breath or wheezing #6.7 g ladan apixaban 5 mg tablet (Eliquis) 5 mg PO BID #180 tabs 0 12/21/24 verapamil 240 mg 24 hr 240 mg PO DAILY #90 caps capsule,extended release tramadol 50 mg tablet 50 mg PO BID PRN pain #7 tab s 04/20/25 Allergies Allergy/AdvReac Type Severity Reaction Status Date / Time codeine (CODEINE) Allergy Unknown NAUSEA & Verified 04/20/25 02:31 VOMITING azithromycin Allergy Angioedema Verified 04/20/25 02:31 cephalexin (From Keflex) Allergy Rash Verified 04/20/25 02:31 ibuprofen Allergy Angioedema Verified 04/20/25 02:31 latex Allergy Rash Verified 04/20/25 02:31 lisinopril Allergy Angioedema Verified 04/20/25 02:31 nadolol (From Corgard) Allergy Itching Verified 04/20/25 02:31 NSAIDS (Non-Steroidal Allergy Angioedema Verified 04/20/25 02:31 Anti-Inflamma clindamycin AdvReac Rash Verified 04/20/25 02:31 diltiazem (From Cardizem) AdvReac Headache Verified 04/20/25 02:31 Aspirin Allergy Rash Uncoded 04/20/25 02:31 Review of Systems 2 Review of Systems: Constitutional : No Weight loss, No Fever, No Chills, No Night Sweats, No Fatigue, No Malaise ENT/Mouth : No Hearing loss, No Ear Pain, No Nasal Congestion, complaining of bilateral sinus Pain, No Hoarseness, No sore throat, No Rhinorrhea, No Swallowing Difficulty Eyes: No Eye Pain, No Swelling, No Redness, No Foreign Body, No Discharge, No Vision Changes Cardiovascular : No Chest Pain, No SOB, No Dyspnea on Exertion, No Orthopnea, No Edema, complaining of Palpitations accompanied by dizziness /near-syncope Respiratory : No Cough, No Sputum, No Wheezing, No Smoke Exposure, No Dyspnea Gastrointestinal : No Nausea, No Vomiting, No Diarrhea, No Constipation, No abdominal Pain, No Hematochezia, No Melena Genitourinary : no irregular bleeding, No Dysuria, No Urinary Frequency, No Hematuria, No Urinary Incontinence, No Urgency, No Flank Pain, No Urinary Flow Changes, No Hesitancy Musculoskeletal : No joint pain, No Myalgias, No Joint Swelling Skin : No Skin Lesions, No rash Neuro : No Weakness, No Numbness, No Paresthesias, No Loss of Consciousness, No Dizziness, No Headache Psych : No Anxiety/Panic, No Depression, No SI/HI/AH/VH, No Social Issues, Heme/Lymph: No Bruising, No Bleeding,No Lymphadenopathy Endocrine : No Polyuria, No Polydipsia, No Temperature Intolerance [facility] Past Medical History Medical History HTN (hypertension) PAC (premature atrial contraction) Surgical History History of lateral meniscus repair of right knee Status post total hip replacement, left Family History Family History Father Aortic aneurysm Heart disease Mother Stroke AAA (abdominal aortic aneurysm) Brother Heart disease Social History Social History Patient Tobacco Use Status: Former Tobacco user Smoked in Last 30 Days: No Use of substances other than those prescribed or required for medical reasons: No Advance Directives: No Advance Directives Information Provided: Yes Do you have a plan to hurt others: No Plan Physical Exam ED Exam Exam: Appearance: Alert. Oriented X3. No acute distress. Eyes: Pupils equal, round and reactive to light. ENT: Pharynx normal. Neck: Normal inspection. Neck supple. No lymph nodes noted. No crepitus CVS: patient's heart rate is irregular. Pulses normal. Normal S1 and S2 Respiratory: No respiratory distress. Breath sounds normal. No Wheezing. No rales Abdomen: Soft and nontender. No rigidity. No distention. Skin: Skin warm and dry. Normal skin color. Normal skin turgor. Extremities: No lower extremity edema. No Lacerations. No Rash Neuro: Oriented X 3. No motor deficit. No sensory deficit. Moving all extremities. No slurred speech. CN 2 through 12 grossly intact Psych: calm, cooperative, normal affect Vital Signs: Vital Signs - 24 hr 04/20/25 02:27 04/20/25 02:39 04/20/25 02:56 Temperature 98.1 F 98.1 F Pulse Rate 93 93 112 H Respiratory Rate 14 14 25 H Blood Pressure 101/66 101/66 99/59 L Pulse Oximetry 89 L 89 L 95 Oxygen Delivery Method Room Air Room Air Nasal Cannula Oxygen Flow Rate 2.5 04/20/25 04:05 Temperature 98.9 F Pulse Rate 93 Respiratory Rate 23 H Blood Pressure 104/55 L Pulse Oximetry 94 Oxygen Delivery Method Nasal Cannula Oxygen Flow Rate 2.5 BMI result Body Mass Index 37.1 Course Course Course Narrative: all of patient's labs and imaging pending, EKG pending. Medications Administered Discontinued Medications Generic Name Dose Route Start Last Admin Trade Name Freq PRN Reason Stop Dose Admin Potassium Chloride 60 meq 04/20/25 03:06 04/20/25 03:23 Potassium Chloride Packet 20 Meq Packet PO 04/20/25 03:07 60 meq ONCE ONE Administration Medical Decision Making Medical Decision Making [facility] Narrative: My interpretation of labs: Patient's white blood cell count 12.0, normal hemoglobin hematocrit and platelets. Blood gases shows pH of 7.51, pCO2 28, bicarb 23 . Chemistry shows a potassium of 2.8 which was repleted p.o.. Patient's pro BNP 782, troponin 3.9. TSH within normal Limits . ETOH negative, patient tested positive for influenza a, negative for influenza B RSV and COVID. chemistry troponin BNP pending patient was ambulated around the emergency room, patient did not have any tachycardia, no shortness of breath, oxygen saturation 94% on above. No dizziness or lightheadedness. When patient came in, patient reported that she was having a lot of palpitations and a lot of dizziness along with The palpitations. Given her history of unclear diagnosis of atrial fibrillation, dizziness with palpitations, I recommended admission to the hospital. patient states that since she has been here, she has not had any palpitations, any dizziness. Patient states that she prefers to go home and if if anything changes, she will come back. patient's who is at bedside also tried to convince her to stay but patient declined admission. Patient falls into the window of treatment for Tamiflu. However, patient has history of significant side-effects to medications. Patient states that she will manage her symptoms at home with Tylenol. Unfortunately, patient has significant side-effects to NSAIDs. Patient states the only thing that may help her a bit is tramadol which she has not had since she had a hip surgery. Chest x-ray shows nonspecific interstitial prominences, atypical/ viral infiltrates. Less likely pulmonary interstitial edema. Patient's BNP is a bit bumped. However, patient does not have any signs of fluid overload. Overall, it is likely that patient's arrhythmias from earlier today which triggered by influenza and respiratory symptoms. As mentioned above, ideally patient should be seeing in the hospital would patient requested to be discharged home. of note, patient states that she is allergic to codeine and morphine walking. However, patient states that only medication that she can tolerate with no side- effects is tramadol. Patient states that she has had it before and it works well for her although she avoids using it. Differential Diagnosis Differential Diagnoses: The differential diagnosis associated with the presentation includes ( Influenza, RSV, COVID, atrial fibrillation, atrial flutter) Admission/Observation Consideration of admission/observation: Escalation of care including admission/observation considered ( admission was recommended. Patient respectfully declined) Lab Data MDM Lab Attestation statement: I reviewed the patient's lab results. 04/20/25 02:37 04/20/25 02:37 Labs: Lab Results 04/20/25 04/20/25 04/20/25 Range/Units 02:36 02:37 02:41 WBC 12.0 H (4.8-10.8) X10*3/uL RBC 4.56 (4.20-5.50) X10*6/uL Hgb 13.7 (12.0-16.0) g/dl Hct 38.2 (37.0-47.0) % MCV 83.8 (80.0-98.0) fL MCH 30.0 (27.0-33.0) pg MCHC 35.9 H (31.0-35.0) g/dl RDW 13.6 (11.0-16.0) % Plt Count 250 D (160-400) X10*3/uL MPV 10.6 (9.4-12.3) fL Immature Gran % (Auto) 0.4 (0.0-0.4) % Neut % (Auto) 86.0 H (45-73) % Lymph % (Auto) 4.9 L (20-40) % Stoddard % (Auto) 7.8 (2-11) % Eos % (Auto) 0.6 (0-4) % Baso % (Auto) 0.3 (0-2) % Lymph # (Auto) 0.6 L (1.2-4.9) X10*3/uL Stoddard # (Auto) 0.9 (0.1-1.2) X10*3/uL Eos # (Auto) 0.1 (0.0-0.4) X10*3/uL Baso # (Auto) 0.0 (0.0-0.2) X10*3/uL Abs Immat Gran (auto) 0.05 H (0.00-0.03) X10*3/uL Absolute Neuts (auto) 10.3 H (2.0-8.3) x10*3/uL Absolute Nucleated RBC 0.000 (0.0-0.012) X10*3/uL Nucleated RBC % (auto) 0.0 (0.0-0.2) /100WBC VBG pH 7.51 H (7.32-7.43) VBG pCO2 28 mmHg VBG pO2 61 mmHg VBG HCO3 23 (22-26) mmol/L VBG O2 Saturation 92.0 % VBG Base Excess 1.7 mmol/L Sodium 139 (135-145) mmol/L Potassium 2.8 L* (3.3-5.1) mmol/L Chloride 105 (96-108) mmol/L Carbon Dioxide 23 (22-29) mmol/L Anion Gap 14 (12-20) BUN 14 (9-16) mg/dL Creatinine 0.86 (0.5-1.4) mg/dL Estim Creat Clear Calc 59.9 Estimated GFR > 60 Random Glucose 136 H (60-115) mg/dL Calcium 8.5 D (8.4-10.2) mg/dL Magnesium 1.7 (1.6-2.6) mg/dL Total Bilirubin 0.6 (0.0-1.0) mg/dL Direct Bilirubin 0.2 (0.0-0.5) mg/dL AST 28 (5-31) U/L ALT 25 (0-31) U/L Alkaline Phosphatase 55 (39-117) U/L Troponin I High Sens 3.9 (<3.5-17.0) ng/L NT-Pro-B Natriuret Pep 782.3 H (<300) pg/mL Total Protein 6.1 L (6.5-8.0) g/dL Albumin 3.9 (3.5-5.0) g/dL TSH 2.49 (0.32-4.0) uIU/mL Ethyl Alcohol < 10 mg/dL Influenza Type A (PCR) POSITIVE A (Negative) Influenza Type B (PCR) NEGATIVE (Negative) RSV RNA Qual (PCR) NEGATIVE (Negative) SARS-CoV-2 RNA (RT-PCR) NEGATIVE (Negative) Independent Interpretation I performed an independent interpretation of an: Plain X-Ray Radiology Impression Discussion of test interpretation with radiology: I have reviewed the radiologist's reading. Radiologist Impression: No consolidation, pneumothorax, or effusion. Mild interstitial prominence identified within the lungs. Heart size normal. Impression: 1. Mild nonspecific interstitial prominence identified within the lungs, which may be seen with scattered atypical/viral infiltrates, mild pulmonary interstitial edema, or chronic lung changes/scarring. No focal pulmonary consolidation. Critical Care Time Critical Care Time Critical Care Time: Yes Total Critical Care Time: 45 Attestation: I have personally provided critical care time. Time includes review of lab data, radiology results, discussion with consultants, and monitoring for potential decompensation. Intervention performed as documented. Discharge Plan Discharge Clinical Impression: Influenza A, Palpitations, Dizziness Patient Disposition: Home, Self-Care Instructions: Heart Palpitations (ED), Influenza (ED), Dizziness (ED) Additional Instructions: Please follow-up with your primary care physician tomorrow. If you have any worsening or new symptoms, please return to the emergency room or call 911 Prescriptions: New tramadol 50 mg tablet 50 mg PO BID PRN (Reason: pain) Qty: 7 0RF No Action Eliquis 5 mg tablet 5 mg PO BID Qty: 180 3RF verapamil 240 mg capsule,ext rel. pellets 24 hr 240 mg PO DAILY Qty: 90 3RF hydroxyzine HCl 25 mg tablet 25 mg PO DAILY hydrochlorothiazide 25 mg tablet 25 mg PO DAILY epinephrine 0.3 mg/0.3 mL auto-injector IM albuterol sulfate 90 mcg/actuation HFA aerosol inhaler 2 inh inhalation QID PRN (Reason: shortness of breath or wheezing) Qty: 6.7 0RF prednisone 20 mg tablet 40 mg PO DAILY PRN Print Language: Ukrainian
[2025-04-20 02:39] VITALS: BP 101/66; PULSE 93; RESP 14; TEMP 36.7; O2SAT 89
[2025-04-20 02:40] LABS: Venous Blood Gas Refer to POC result
[2025-04-20 02:41] LABS: Hematocrit 38.2 % (37.0-47.0); Hemoglobin 13.7 g/dl (12.0-16.0); Imm Gran Abs Auto 0.05 X10*3/uL (0.00-0.03); Imm Gran Pct Auto 0.4 % (0.0-0.4); Lymphocytes Absolute Auto 0.6 X10*3/uL (1.2-4.9); Mean Corpuscular HGB Conc 35.9 g/dl (31.0-35.0); Mean Corpuscular Hemoglobin 30.0 pg (27.0-33.0); Mean Corpuscular Volume 83.8 fL (80.0-98.0); NRBC Abs Auto 0.000 X10*3/uL (0.0-0.012); NRBC Pct Auto 0.0 /100WBC (0.0-0.2); Platelet Count 250 X10*3/uL (160-400); Red Blood Count 4.56 X10*6/uL (4.20-5.50); White Blood Count 12.0 X10*3/uL (4.8-10.8)
[2025-04-20 02:43] LABS: MANUAL DIFF FLAG NO
[2025-04-20 02:45] LABS: VBG HCO3 23 mmol/L (22-26); VBG O2 % Saturation 92.0 %
--- OUTSIDE RECORDS SUMMARY | 2025-04-20 02:54 | XMS_ITS | Clinical Summary ---
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 [...] 03/29/2017 05/10/2024 Overview (03/29/2017): Dx 2015 at [facility], repeat every 5 yrs. PMB (postmenopausal bleeding) 11/11/2021 Encounters Date Type Department Care Team Description 04/03/2025 Telephone [facility] [address] [place] [address] Lara Cox MD Request For Order(s) (Mammogram orders) 03/27/2025 Orders Only [facility] [address] [place] [address] Provider, MD Mary Ann 02/07/2025 Refill [facility] [address] [facility] [address] [place] [address] Lara Cox MD Medication Refill from Last [...] Description 06/13/2025 9:20 AM EST Office Visit [facility] [address] [place] [address] Lara Cox MD [address] [place] [address] 03/08/2026 10:00 AM EST Office Visit [facility] [address] [place] [address] Lara Cox MD [address] [place] [address] Health Maintenance Due Date Last Done Comments [...] Additional history exists BLOOD PRESSURE 07/11/2025 01/11/2025 MAMMOGRAM 09/20/2025 03/23/2025, 11/0 09/2023, 12/21/2019, Additional history exists DEPRESSION SCREENING 12/18/2025 12/18/2024 LIPID PANEL 11/14/2027 11/13/2022, 10/31, 04/30/2017 SMOKING [...] this topic Medical Devices Implanted Type Area Credit Professional Device Identifier Shelf Expiration Date Model / Serial / Lot Prosthetic Joint Prosthetic Joint Left: Hip Procedures Procedure Name Priority Date/Time Associated Diagnosis Comments BI MAMMOGRAM DIAGNOSTIC (RIGHT) Routine 04/18/2025 1:43 PM EST Abnormal finding on breast imaging BI US BREAST (RIGHT) Routine 04/18/2025 1:42 PM EST Abnormal finding on breast imaging HM [...] Recently Relevant to Health Maintenance Results * Mammogram Diagnostic (Right) (04/18/2025 1:43 PM EST) Anatomical Region Laterality Modality Breast Right, Breast Bilateral Right B reast Diagnostic us Lara Cox MD IMG MG EXAMS Final Result * US Breast (Right) (04/18/2025 1:42 PM EST) Anatomical Region Laterality Modality Breast Right, Breast Bilateral Right B reast Diagnostic us Lara Cox MD IMG US BREAST Final Result * MAMMOGRAPHY FOR RESULT ENTRY ONLY (03/23/2025 9:45 AM EST) Mary Ann Lowery MD HEALTH MAINTENANCE Edited Result - Final * Basic metabolic panel (06/07/2024 9:21 AM EST) SODIUM 142 133 - 146 mmol/L [facility] CHLORIDE 104 96 - 108 mmol/L [facility] POTASSIUM 3.5 3.3 - 5.1 mmol/L [facility] CO2 27 21 - 35 mmol/L [facility] BUN 18 6 - 19 mg/dL [facility] CREATININE 0.80 0.5 - 1.5 mg/dL [facility] GLUCOSE 85 70 - 99 mg/dL [facility] CALCIUM 9.6 8.4 - 10.3 mg/dL [facility] EGFR 79 >59 mL/min/1.7 3m2 [facility] Comment:Estimated glomerular filtration rate calculated using the CKD-EPI refit equation. ANION GAP 15 10 - 20 mmol/L [facility] Blood 06/07/2024 9:21 AM EST 06/07/2024 9:29 AM EST Lara Cox MD LAB BLOOD BKR ORDERABLES Fin al Result Performing Organization Address [facility] Co de Phone Number [address] [address] * (ABNORMAL) Lipid panel (11/13/2022 11:45 AM EDT) HDL 35 mg/dL [facility] Comment: Interpretation <40 mg/dL: Low HDL cholesterol (major risk factor for CHD) Greater than or equal to 60 mg/dL: High HDL cholesterol ( negative risk factor for CHD) HDL - cholesterol is affected by a number of factors, e.g. smoking, excerise, hormones, sex and age. CHOLESTEROL 171 0 - 240 mg/dL [facility] TRIGLYCERIDES 122 30 - 160 mg/dL [facility] LDL 112 50 - 129 mg/dL [facility] Comment: LDL levels in terms of risk for coronary heart disease: <100 mg/dL: Optimal 100-129 mg/dL: Near or above optimal 130-159 mg/dL: Borderline high 160-189 mg/dL: High >190 mg/dL: Very High CARDIAC RISK RATIO 4.9(H) 3.3 - 4.4 C [facility] Blood 11/13/2022 11:4 5 AM EDT 11/13/2022 12:00 PM EDT Evelyn Collins MD LAB BLOOD BKR ORDERABLES Final R esult Performing Organization Address City/[facility]/ZIP Co de Phone Number [address] [address] * HM DEXA SCAN (01/16/2022 9:18 AM EDT) Historical Provider HEALTH MAINTENANCE Edited Result - Final * Hepatitis C antibody, qualitative (08/13/2020 3:21 PM EDT) HCV NON-REACTIV E NON-REACTI VE [facility] Blood 08/13/2020 3:21 PM EDT 08/13/2020 3:23 PM EDT us Jessy Johnson DO LAB BLOOD BKR ORDERABLES F inal Result [facility] [address] [place] [address] from Last 3 Months or Most Recently Relevant to Health Maintenance Insurance MEDICARE PART A & B Member Subscriber Plan / Payer (Ef fective 2018-Present) Name:Susan Mesa Member ID:[id number] Relation to Subscriber:Self Name:Susan Mesa Subscriber ID:[id number] Payer ID:[id number] Group ID:Not on file Type:Medicare Address: [facility] [employer] [facility] [address] [place] [address] [facility] MEDICARE SUPPLEMENT MEDICARE PART A & B [facility] MEDICARE SUPPLEMENT MEDICARE PART A & B Member Subscriber Plan / Payer ( fective 2018-Present) Name:Corazon Mesahryn Member ID:[id number] Relation to Subscriber:Self Name:Susan Mesa Subscriber ID:[id number] Payer ID:[id number] Group ID:Not on file Type:Medicare Address: [employer] [address] MEDICARE SUPPLEMENT MEDICARE PART A & B [email or web address] MEDIC[employer] SUPPLEMENT MEDICARE PART A & B [email or web address] MEDICARE SUPPLEMENT MEDICARE PART A & B MEDICARE SUPPLEMENT MEDICARE PART A & B [employer] MEDICARE SUPPLEMENT MEDICARE PART A & B [facility] EX[employer]ENSION MEDICARE SUPPLEMENT MEDICARE PART A & B [facility] [employer]ION MEDICARE SUPPLEMENT Advance Directives For more information, please contact: [phone] (9AM - 5PM [facility], Wednesday-Wednesday) Documents on File Type Date Recorded Patient Wood Turner Expl anation Healthcare Proxy 05/14/2023 5:14 PM MOLST 04/14/2023 Molst * Full Code (Latest Code Status on File) Date Activated Date Inactivated Comments 05/13/2023 12:08 PM Question Answer Comments Code Status Confirmed With: Patient * Full Code (Presumed) Date Activated Date Inactivated Comments 11/10/2019 10:29 AM 05/13/2023 12:08 PM Care Teams Safety Intern Relationship Specialty Start Date End Date Lara Cox MD [address] [place] [address] [email or web address] PCP - General Family Medicine 09/06/20 Lara Cox MD [address] [place] [address] Insurance Assigned Provider 08/07/23 Additional Source Comments The information contained in this document represents components of the legal health record. It is not the complete legal health record.[facility]
--- OUTSIDE RECORDS SUMMARY | 2025-04-20 02:54 | XMS_ITS | Encounter Summary ---
Author Organization [facility] Address [address] [place] [address] Phone Care Team Providers Care Decorating Equipment Setter Name Role Phone Jessy Johnson DO Primary Care Provider + [phone] Jessy Johnson DO Unavailable [phone] Lara Cox MD Primary Care Provider [phone] Lara Cox MD Unavailable [phone] Encounter Details Date Type Department Care Team (Late Contact Info) Description 11/10/2019 Procedure Pass OR Admitting Dept - Virtual Department [address] [place] [address] Social History Tobacco Use Types Packs/Day Years [...] Description 06/13/2025 9:20 AM EST Office Visit [facility] [address] [facility] [address] [place] [address] Lara Cox MD [address] [facility] [address] [place] [address] 03/08/2026 10:00 AM EST Office Visit [facility] [address] [facility] [address] [place] [address] Lara Cox MD 15 [facility] [place] [address] documented as of this encounter Visit Diagnoses [...] documented as of this encounter Care Teams Decorating Equipment Setter Relationship Specialty Start Date End Date Jessy Johnson DO [address] [place] [address] [email or web address] PCP - General Family Medicine 06/07/18 09/05/20 Lara Cox MD [address] [address] [email or web address] PCP - General Family Medicine 09/06/20 Jessy Johnson DO [address] [place] [address] [email or web address] Insurance Assigned Provider 08/09/19 08/09/21 Lara Cox MD [address] [address] [email or web address] Insurance Assigned Provider 08/07/23 documented as of this encounter Additional Source Comments The information contained in this document represents components of the legal health record. It is not the complete legal health record.[facility]
--- OUTSIDE RECORDS SUMMARY | 2025-04-20 02:54 | XMS_ITS | Patient Health Record ---
Author Organization [facility] Address [address] [facility] [address] [place] [address] Support Name Relationship Address Phone RANJAN DASILVA Guarantor Unknown [phone] Reason For Referral No Information Medications Medication SIG (Take, Route, Frequency, Duration) Notes Start Date End Date Status Clobetasol Prop Crea-[place] Tar Vaginal tw ice daily; Duration: -3 Mannie-MJ 03/31/2011 Active hydroCHLOROthiazide 20MG 1 ORAL daily; Duration: -3 Mannie-MJ 03/31/2011 Active Problems Problem Type SNOMED Code ICD Code Onset Dates Problem Status W/U Status Risk Notes Problem Candidal vulvovaginitis (34205848) Candidiasis of vulva and vagina (112.1) Active confirmed Other Problem Essential hypertension (20035332) Unspecified essential hypertension (401.9) Active confirmed Major Problem Vulvovaginitis (disorder) (63048865) Vaginitis and vulvovaginitis (616.1) Active confirmed Other Plan Of Treatment No Information Insurance Providers Payer Name Payer Address Payer Phone Subscriber Number Group Number Insured Name Patient Relationship to Insured Coverage Start Date Coverage End Date [employer] MEDICARE PPO [address] [place] [address] [phone] [id number] RANJAN DASILVA Self - patient is the insured
--- OUTSIDE RECORDS SUMMARY | 2025-04-20 02:54 | XMS_ITS | Encounter Summary ---
Author Organization [facility] Address [address] [place] [address] Phone Care Team Providers Care Wind Field Service Manager Name Role Phone Jessy Johnson Sulma DO Unavailable [phone] Lara Cox MD Primary Care Provider [phone] Lara Cox MD Unavailable [phone] Encounter Details Date Type Department Care Team (Late st Contact Info) Description 11/15/2020 Procedure Pass [facility] [address] [place] [address] Social History Tobacco Use Types Packs/Day Years [...] high school, GED, job training, learning the [place] language, technical skills, or developing parenting skills)? [...] Upcoming Encounters Date Type Department Care Team ([facility] st Contact Info) Description 06/13/2025 9:20 AM EST Office Visit [facility] [address] [facility] [address] [place] [address] Lara Cox MD [address] [place] [address] 03/08/2026 10:00 AM EST Office Visit [facility] [address] [place] [address] Lara Cox MD [address] [place] [address] documented as of this encounter Visit Diagnoses Not on filedocumented in this encounter Additional Health Concerns Infection Onset Date Last Indicated Resolved Time CoV-Presumed 09/11/2021 09/11/2021 10/02/2021 1:22 AM EDT Assessment Noted Time PHQ-2 Depression Total Score: 0 10/10/19 21 7:49 AM EDT documented as of this encounter Care Teams Wind Field Service Manager Relationship Specialty Start Date End Date Lara Cox MD [address] [place] [address] [email or web address] PCP - General Family Medicine 09/06/20 Jessy Johnson DO [address] [place] [address] [email or web address] Insurance Assigned Provider 08/09/19 08/09/21 Lara Cox MD [address] [place] [address] [email or web address] Insurance Assigned Provider 08/07/23 documented as of this encounter Additional Source Comments The information contained in this document represents components of the legal health record. It is not the complete legal health record.[facility]
--- OUTSIDE RECORDS SUMMARY | 2025-04-20 02:54 | XMS_ITS | Encounter Summary ---
Author Organization [facility] Address [address] [address] Phone Care Team Providers Care Tank Farm Attendant Name Role Phone Lara Cox MD Primary Care Provider + [phone] Lara Cox MD Unavailable [phone] Encounter Details Date Type Department Care Team (Late st Contact Info) Description 03/27/2025 Orders Only [facility] [address] [place] [address] Provider, MD Mary Ann [address] [place] [address] Social History Tobacco Use Types Packs/Day Years [...] 06/13/2025 9:20 AM EST Office Visit [facility] [address] [facility] [address] [place] [address] Lara Cox MD [address] [facility] [address] [place] [address] 03/08/2026 10:00 AM EST Office Visit [facility] [address] [facility] [address] [place] [address] Lara Cox MD [address] [facility] [address] [place] [address] documented as of this encounter Procedures Procedure [...] documented as of this encounter Care Teams Tank Farm Attendant Relationship Specialty Start Date End Date Lara Cox MD [address] [address] PCP - General Family Medicine 09/06/20 Lara Cox MD [address] [address] Insurance Assigned Provider 08/07/23 documented as of this encounter Additional Source Comments The information contained in this document represents components of the legal health record. It is not the complete legal health record.[facility]
--- OUTSIDE RECORDS SUMMARY | 2025-04-20 02:54 | XMS_ITS | Encounter Summary ---
Author Organization [facility] Address [address] [place] [address] Phone Care Team Providers Care Hydropress Operator Name Role Phone Lara Cox MD Primary Care Provider + [phone] Lara Cox MD Unavailable [phone] Encounter Details Date Type Department Care Team (Late st Contact Info) Description 05/13/2023 Procedure Pass OR Admitting Dept - Virtual Department [address] [place] [address] Social History Tobacco Use Types Packs/Day Years [...] high school, GED, job training, learning the Tajik language, technical skills, or developing parenting skills)? [...] [facility] [address] [facility] [address] [place] [address] Lara Cox MD [address] [place] [address] [address] [place] [address] 03/08/2026 10:00 AM EST Office Visit [facility] [address] [facility] [address] [place] [address] Lara Cox MD [address] [facility] [address] [place] [address] [email or web address] documented as of this encounter Visit Diagnoses Not on filedocumented in this encounter Additional Health Concerns Assessment Noted Time PHQ-2 Depression Total Score: 0 04/14/20 10:04 AM EST documented as of this encounter Care Teams Hydropress Operator Relationship Specialty Start Date End Date Lara Cox MD [address] [facility] [address] [place] [address] [email or web address] PCP - General Family Medicine 09/06/20 Lara Cox MD [address] [facility] [address] [place] [address] Insurance Assigned Provider 08/07/23 documented as of this encounter Additional Source Comments The information contained in this document represents components of the legal health record. It is not the complete legal health record.[facility]
[2025-04-20 02:56] VITALS: BP 99/59; PULSE 112; RESP 25; O2SAT 95
[2025-04-20 03:07] LABS: Alanine Aminotransferase 25 U/L (0-31); Albumin Level 3.9 g/dL (3.5-5.0); Alkaline Phosphatase 55 U/L (39-117); Anion Gap 14 (12-20); Aspartate Amino Transferase 28 U/L (5-31); Blood Urea Nitrogen 14 mg/dL (9-16); Calcium 8.5 mg/dL (8.4-10.2); Carbon Dioxide 23 mmol/L (22-29); Chloride 105 mmol/L (96-108); Creatinine Clr Calc Pharmacy 59.9; Estimated Glomerular Filt Rate > 60; Magnesium 1.7 mg/dL (1.6-2.6); Potassium 2.8 mmol/L (3.3-5.1); Sodium 139 mmol/L (135-145); Total Protein 6.1 g/dL (6.5-8.0)
[2025-04-20 03:10] LABS: Troponin-I High Sensitivity 3.9 ng/L (<3.5-17.0)
[2025-04-20 03:19] LABS: Resp Syncy Virus RNA Qual PCR NEGATIVE (Negative); SARS COV2 PCR INHOUSE NEGATIVE (Negative)
[2025-04-20 03:20] LABS: NT Pro B Type Natriuretic Pept 782.3 pg/mL (<300)
[2025-04-20] MEDS: Potassium Chloride Packet 20 MEQ PACKET 60 MEQ PO (03:23)
[2025-04-20 04:05] VITALS: BP 104/55; PULSE 93; RESP 23; TEMP 37.2; O2SAT 94
[2025-04-20 06:10] VITALS: BP 102/66; PULSE 86; RESP 15; TEMP 37.1; O2SAT 97
[2025-04-20 06:40] VITALS: BP 102/66; PULSE 86; RESP 15; TEMP 37.1; O2SAT 97
== END 2025-04-20 06:40 | disposition home or self-care (01) ==
PROVIDERS: Emergency Provider Emergency Medicine
DX: J10.1 Influenza due to other identified influenza virus with other respiratory manifestations (principal); R42 Dizziness and giddiness; R00.2 Palpitations; I49.3 Ventricular premature depolarization; J34.89 Other specified disorders of nose and nasal sinuses; Z79.01 Long term (current) use of anticoagulants; I10 Essential (primary) hypertension; I49.1 Atrial premature depolarization; Z87.891 Personal history of nicotine dependence
CPT/HCPCS: 36415; 71045; 80048; 80076; 80307; 82803; 83735; 83880; 84443; 84484; 85025; 87637; 93005; 99283; 99284

== ENCOUNTER → 2025-04-20 02:27 | Outpatient (BNV) | payer MEDICARE, OTHER, SELFPAY | PROVIDERS: Emergency Provider Emergency Medicine; Visit Provider Internal Medicine Cardiovascular Disease | DX: R00.0 Tachycardia, unspecified (principal); I49.1 Atrial premature depolarization | CPT/HCPCS: 93010 ==

== ENCOUNTER → 2025-04-20 02:29 | Outpatient (BNV) | payer MEDICARE, OTHER, SELFPAY | PROVIDERS: Emergency Provider Emergency Medicine; Visit Provider Radiology Diagnostic Radiology | DX: R06.02 Shortness of breath (principal) | CPT/HCPCS: 71045 ==